=== PATIENT | female | born 1970 | race Caucasian/White ===

== ENCOUNTER → 2017-08-04 | Outpatient (CLI) | payer OTHER, SELFPAY | PROVIDERS: Visit Provider Nurse Practitioner | DX: D68.9 Coagulation defect, unspecified (principal); G44.52 New daily persistent headache (NDPH) | CPT/HCPCS: 70553; A9576 ==

== ENCOUNTER → 2017-10-27 11:44 | Outpatient (CLI) | payer OTHER, SELFPAY ==
[2017-10-31 18:53] LABS: Anti-Thrombin III Antigen 85%
[2017-10-31 18:59] LABS: Lupus Reflex Interpretation COMMENT:
== END ==
PROVIDERS: Visit Provider Internal Medicine
DX: Z79.01 Long term (current) use of anticoagulants (principal); Z51.81 Encounter for therapeutic drug level monitoring; I26.99 Other pulmonary embolism without acute cor pulmonale
CPT/HCPCS: 36415; 85301; 85613; 86147

== ENCOUNTER 2020-10-17 12:56 | Emergency (ER) | payer MEDICAID, SELFPAY ==
[2020-10-17 12:57] VITALS: BP 163/98; PULSE 100; RESP 20; TEMP 36.7; O2SAT 100; BMI 37.5
--- NOTE | 2020-10-17 13:36 | CT_ITS ---
PROCEDURE: CT ABDOMEN PELVIS W CON CLINICAL INDICATION: abdominal wall cellulitis COMPARISON: No exams were available for comparison TECHNIQUE: IV Contrast: 75ML Isovue 370 Oral Contrast None Axial images obtained with sagittal and coronal reformats. All CT scans at the facility use one or more dose reduction, viz: automated exposure control, ma/kV adjustment per patient size (including targeted exams where dose is matched to indication, i.e. head), or iterative reconstruction technique. FINDINGS: LOWER THORAX: No acute finding ABDOMEN & PELVIS: Prior cholecystectomy. The liver, spleen, adrenal glands, and pancreas have an unremarkable appearance. No renal or ureteral calculi. No hydronephrosis. There is a moderate amount of retained colonic feces. No evidence of appendicitis. There is a tampon present with air density in the vaginal region. No evidence of diverticulitis. No intestinal obstruction or free air. Bilateral ovarian follicular cysts are present at 2.8 cm on the left and 2.7 cm on the right. There is focal stranding of the subcutaneous fat in the right lower quadrant anteriorly. There is a 2 cm fluid collection in this region consistent with a subcutaneous abscess. This is associated with skin thickening. The abscess is just beneath the skin. There is some mild thickening of the subcutaneous tissues in the left lower abdominal wall as well but no abscess. Small nodular density is present in this region measuring approximately 5 mm and could be due to small lymph node. No acute bony findings. IMPRESSION: Cellulitis of the anterior abdominal wall on the right. This is inferior to the level of the umbilicus in the mid pelvic region with a 2.5 cm subcutaneous abscess Dictated by: Justin Hein MD 10/17/2020 16:45 Justin Hein MD in [place] 10/17/2020 16:45
--- NOTE | 2020-10-17 14:13 | PC.NURSE ---
pt to radiology
[2020-10-17 14:35] LABS: Basophils % 0.2 % (0.1-2.0); Eosinophils % 0.1 % (0.1-12.0); Hematocrit 39.9 % (37.0-47.0); Hemoglobin 12.9 g/dL (12.2-16.2); Lymphocytes # 1.1 K/mm3 (0.7-4.5); Lymphocytes % 9.1 % (10-50); Mean Corpuscular HGB Conc 32.2 g/dL (31.8-35.4); Mean Corpuscular Hemoglobin 29.3 pg (27.0-31.2); Mean Platelet Volume 7.3 fl (7.4-10.4); Monocytes # 0.3 K/mm3 (0.1-1.0); Monocytes % 2.1 % (1.7-9.3); Neutrophils # 10.3 K/mm3 (1.8-7.8); Neutrophils % 88.4 % (37.0-80.0); Platelet Count 469 K/mm3 (142-424); Red Blood Count 4.39 M/mm3 (4.20-5.40); Red Cell Distribution Width 13.9 % (11.5-17.5); White Blood Count 11.6 K/mm3 (4.8-10.8)
[2020-10-17 14:36] LABS: MANUAL DIFFERENTIAL MANUAL DIFFERENTIAL (MANUAL DIFF)
[2020-10-17 14:40] VITALS: BP 141/94; PULSE 96; O2SAT 99
[2020-10-17 14:42] LABS: Lymphocytes % 15 % (10-50); Monocytes % 5 % (2-9); Neutrophils % 80 % (42-76); Platelet Estimate Slight Increase; RBC Morphology Normal; Total Cells Counted 100
[2020-10-17 14:43] LABS: Alanine Aminotransferase 23 U/L (12-78); Albumin Level 4.4 g/dl (3.5-5.0); Albumin/Globulin Ratio 1.3 (1.1-1.8); Alkaline Phosphatase 102 U/L (38-126); Anion Gap 12.8 mEq/L (5-15); Aspartate Amino Transferase 28 U/L (14-36); Bilirubin,Total 0.3 mg/dl (0.2-1.3); Blood Urea Nitrogen 19 mg/dl (7-17); Calcium 9.7 mg/dl (8.4-10.2); Carbon Dioxide 26 mmol/L (22.0-30.0); Chloride 107 mmol/L (98-107); Creatinine Clearance Estimated 138 mL/min (50-200); Estimated Glomerular Filt Rate 76 ml/min (>60); GFR (African American) 92 ML/MIN (>60); Globulin 3.5 g/dL (1.3-3.2); Glucose 109 mg/dl (74-100); Potassium 3.8 mmoL/L (3.5-5.1); Sodium 142 mmol/L (136-145); Total Protein,Serum 7.9 g/dl (6.3-8.2)
[2020-10-17 14:44] LABS: Lactic Acid 1.2 mmol/L (0.7-2.1)
--- NOTE | 2020-10-17 14:46 | HMH.EDSKAF ---
ED Disposition Clinical Impression: Abscess of abdominal wall Cellulitis Qualifiers: Site of cellulitis: trunk Site of cellulitis of trunk: abdominal wall Qualified Code(s): L03.311 - Cellulitis of abdominal wall Disposition: Home, Self-Care Condition on Discharge: Good Instructions: DI for Skin Abscess Referrals: Narinder Ang MD [Primary Care Provider] - - Critical Care Critical Care Time: No Attestation: On 10/17/20, the high probability of a clinically significant, sudden or life threatening deterioration of the following system(s) required my full and direct attention, intervention and personal management. The time I documented below is in addition to time spent performing reported procedures but includes the following listed in this critical care notation. Medical Decision Making - Medical Records Medical records reviewed: Yes: I reviewed the patient's medical records. - Beny Inquiry Pt receiving controlled substance: No Vital Signs: 10/17/20 12:57 10/17/20 14:40 10/17/20 16:03 Temperature 98.1 F Temperature Source Oral Pulse Rate [Left Radial] 100 H 96 H 83 Respiratory Rate 20 Blood Pressure [Right Arm] 163/98 H 141/94 H 164/100 H Blood Pressure Mean [Right Arm] 119 109 121 Blood Pressure Source [Right Arm] Automatic Cuff Automatic Cuff Automatic Cuff Blood Pressure Position [Right Arm] Sitting Sitting Sitting 02 Sat by Pulse Oximetry 100 99 97 Oxygen Delivery Method Room Air Room Air Room Air - Lab Data Lab Results 10/17/20 13:14: WBC 11.6 H, RBC 4.39, Hgb 12.9, Hct 39.9, MCV 91.0, MCH 29.3, MCHC 32.2, RDW 13.9, Plt Count 469 H, MPV 7.3 L, Neut % (Auto) 88.4 H, Lymph % (Auto) 9.1 L, Wilkinson % (Auto) 2.1, Eos % (Auto) 0.1, Baso % (Auto) 0.2, Neut # (Auto) 10.3 H, Lymph # (Auto) 1.1, Wilkinson # (Auto) 0.3, Eos # (Auto) 0.0, Baso # (Auto) 0.0, Total Counted 100, Neutrophils % (Manual) 80 H, Lymphocytes % (Manual) 15, Monocytes % (Manual) 5, Platelet Estimate Slight increase, RBC Morphology Normal 10/17/20 13:14: Sodium 142, Potassium 3.8, Chloride 107, Carbon Dioxide 26, Anion Gap 12.8, BUN 19 H, Creatinine 0.80, Estimated Creat Clear 138, Estimated GFR 76, Est GFR ( Amer) 92, Glucose 109 H, Calcium 9.7, Total Bilirubin 0.3, AST 28, ALT 23, Alkaline Phosphatase 102, Total Protein 7.9, Albumin 4.4, Globulin 3.5 H, Albumin/Globulin Ratio 1.3 10/17/20 13:14: Lactate 1.2 Result diagrams: 10/17/20 13:14 10/17/20 13:14 Orders (Tests/Meds): ED MEDICATIONS Discontinued Medications Generic Name Dose Route Start Last Admin Trade Name Freq PRN Reason Stop Dose Admin Hydromorphone HCl 1 mg 10/17/20 14:13 10/17/20 14:14 Hydromorphone 2mg/Ml Syringe IV 10/17/20 14:14 Not Given ONCE ONE Iopamidol 75 ml 10/17/20 15:27 10/17/20 15:28 Iopamidol-370 (76%);100ml Bottle IV 10/17/20 15:28 75 ml ONCE ONE Administration Sodium Chloride 10 ml 10/17/20 15:27 10/17/20 15:28 Sodium Chloride 0.9% 10ml Syr (Rad Only) IV 10/17/20 15:28 10 ml ONCE ONE Administration - CT Data CT Scan: Abdomen, Pelvis Time Received: 17:[address] Reviewed: Yes: I have reviewed the patient's CT results, I have viewed the radiologist's interpretation Findings Narrative: IMPRESSION: Cellulitis of the anterior abdominal wall on the right. This is inferior to the level of the umbilicus in the mid pelvic region with a 2.5 cm subcutaneous abscess - Reevaluation(s) Time: 17:26 Reevaluation #1: On reevaluation, patient tolerated procedure well. I did review her antibiotics. It appears that she is on Keflex as well as clindamycin. This should be adequate for Staphylococcus coverage. I did tell the patient that she needs reevaluation and packing removal in 24 hours. She is to finish her antibiotics to completion. She was given strict return precautions. Verbalized understanding. Medical Decision Narrative: 50-year-old female presented to the emergency department with some swe
[2020-10-17 16:03] VITALS: BP 164/100; PULSE 83; O2SAT 97
--- NOTE | 2020-10-17 16:38 | PC.NURSE ---
Pt sitting in room eating at this time, asking when she was going to be discharged. Explained to pt that we had several other pt's in here and that I would let the doctor know she was ready to go. Will continue to monitor as pt allows.
[2020-10-17 18:17] VITALS: BP 139/84; PULSE 78; RESP 20; TEMP 36.7; O2SAT 98
== END 2020-10-17 18:19 | disposition home or self-care (01) ==
PROVIDERS: Emergency Provider Emergency Medicine; PCP Family Medicine
DX: L02.211 Cutaneous abscess of abdominal wall (principal); I10 Essential (primary) hypertension; E78.5 Hyperlipidemia, unspecified; K21.9 Gastro-esophageal reflux disease without esophagitis; E03.9 Hypothyroidism, unspecified; J44.9 Chronic obstructive pulmonary disease, unspecified; F41.9 Anxiety disorder, unspecified; Z79.899 Other long term (current) drug therapy; Z86.711 Personal history of pulmonary embolism
CPT/HCPCS: 10060; 74177; 80053; 83605; 85007; 85025; 99283; Q9967

== ENCOUNTER 2021-04-29 16:43 | Emergency (ER) | payer MEDICAID, SELFPAY ==
--- NOTE | 2021-04-29 17:00 | XR_ITS ---
PROCEDURE: XR WRIST RT MIN 3V CLINICAL INDICATION: pain COMPARISON: No exams were available for comparison FINDINGS: No fracture or dislocation. No lytic or blastic change. There is normal mineralization. The joint spaces are well-preserved. No significant degenerative/arthritic changes. No erosive changes evident. Other findings:None. IMPRESSION: No acute findings. Dictated by: Justin Hein MD 04/29/2021 17:31 Justin Hein MD in [place] 04/29/2021 17:31
[2021-04-29 17:30] VITALS: BP 179/106; PULSE 96; RESP 16; TEMP 36.7; O2SAT 100; BMI 36.4
--- NOTE | 2021-04-29 18:36 | HMH.EDUTC ---
[facility] [place] Clinical Impression: Right wrist sprain Qualifiers: Encounter type: initial encounter Qualified Code(s): S63.501A - Unspecified sprain of right wrist, initial encounter Disposition: Home, Self-Care Condition on Discharge: Good Instructions: Wrist Sprain, DI for Wrist Sprain, DI for Wrist Pain Additional Instructions: Rest the extremity, Elevate the extremity as tolerated while you are resting. Take ibuprofen for pain. I sent in a prescription to your pharmacy. Follow up with Dr. Johnson (orthopedics) or your orthopedic doctor of choice. Radiology is making you a disk with the x-ray on it I put in a referral but you need to call his office and schedule an appointment. Follow up with your regular doctor. GO TO THE ER FOR ANY WORSENING SYMPTOMS Prescriptions: Ibuprofen [Ibuprofen 800mg Tablet] 800 mg PO Q8HP PRN #30 tab PRN Reason: Moderate Pain Transmission Status: Received by [facility] [id number] Referrals: Kaitlin Franks [Primary Care Provider] - Ambrocio Johnson MD [Staff Physician] - Time of Disposition: 18:54 Medical Decision Making - Medical Records Medical records reviewed: No: I reviewed the patient's medical records. - Beny Inquiry Pt receiving controlled substance: No Vital Signs: 04/29/21 17:30 04/29/21 18:56 Temperature 98.1 F 98.1 F Temperature Source Oral Pulse Rate 96 H Pulse Rate [Right Brachial] 96 H Respiratory Rate 16 16 Blood Pressure 179/106 H Blood Pressure [Right Arm] 179/106 H Blood Pressure Mean [Right Arm] 130 Blood Pressure Source [Right Arm] Automatic Cuff Blood Pressure Position [Right Arm] Sitting 02 Sat by Pulse Oximetry 100 Oxygen Delivery Method Room Air [facility] [place] - General Stated complaint: rt wrist pain Time Seen by Provider: 04/29/21 18:36 Mode of Arrival: Ambulatory Source of Information: Patient Limitations: No Limitations Description of Symptoms (Recalled from Triage Doc. by RN): PATIENT C/O RIGHT WRIST PAIN AFTER INJURING IT A COUPLE WEEKS AGO HEENT Symptoms (Recalled from RN notes): No Resp Symptoms (Recalled from RN notes): No Skin Symptoms (Recalled from RN notes): No MS Symptoms (Recalled from RN notes): Yes Functional Status (Recalled from RN notes): WNL - History of Present Illness Provider Complaint: She states that she fell around 2 weeks ago and she has had right wrist pain since then. - Related Data Home Medications Medication Instructions Recorded Confirmed albuterol sulfate 90 mcg/actuation 1 puff INHALATION Q4-6H PRN 10/27/17 10/17/20 aerosol inhaler alprazolam 0.5 mg tablet 0.5 mg PO BID tab 10/27/17 10/17/20 benzonatate 100 mg capsule 100 mg PO ONCE 10/27/17 10/17/20 bisoprolol fumarate 10 mg tablet 10 mg PO ONCE 10/27/17 10/17/20 clopidogrel 75 mg tablet 75 mg PO ONCE 10/27/17 10/17/20 enoxaparin 100 mg/mL subcutaneous 100 mg SUB-Q Q12H 10/27/17 10/17/20 syringe lisinopril 40 mg tablet 40 mg PO ONCE 10/27/17 10/17/20 nitroglycerin 0.4 mg sublingual 0.4 mg SUBLINGUAL Q5-15M PRN 10/27/17 10/17/20 tablet omeprazole 40 mg capsule,delayed 40 mg PO ONCE 10/27/17 10/17/20 release ranitidine HCl 150 mg tablet 150 mg PO QHS 10/27/17 10/17/20 simvastatin 40 mg tablet 40 mg PO QAM 10/27/17 10/17/20 valsartan 160 mg tablet 160 mg PO ONCE 10/27/17 10/17/20 budesonide-formoterol HFA 160 2 inh INHALATION Q12H 12/15/17 10/17/20 mcg-4.5 mcg/actuation aerosol inhaler cyclobenzaprine 10 mg tablet 10 mg PO BID tab 12/15/17 10/17/20 dicyclomine 20 mg tablet 20 mg PO DAILY tab 12/15/17 10/17/20 doxycycline hyclate 100 mg capsule 100 mg PO BID 12/15/17 10/17/20 epinephrine 0.3 mg/0.3 mL 0.3 mg IM ONCE PRN 12/15/17 10/17/20 injection, auto-injector hydrocodone 7.5 mg-acetaminophen 1 tab PO Q6H PRN 12/15/17 10/17/20 300 mg tablet ibuprofen 800 mg tablet 800 mg PO TID 12/15/17 10/17/20 ondansetron HCl 4 mg tablet 4 mg PO QID PRN tab 12/15/17 10/17/20 sertraline 100 mg tablet 100 mg
[2021-04-29 18:56] VITALS: BP 179/106; PULSE 96; RESP 16; TEMP 36.7; O2SAT 100
== END 2021-04-29 19:08 | disposition home or self-care (01) ==
PROVIDERS: Emergency Provider Nurse Practitioner Family; PCP Nurse Practitioner Family
DX: S63.501A Unspecified sprain of right wrist, initial encounter (principal); W01.0XXA Fall on same level from slipping, tripping and stumbling without subsequent striking against object, initial encounter; Y92.019 Unspecified place in single-family (private) house as the place of occurrence of the external cause; J44.9 Chronic obstructive pulmonary disease, unspecified; K21.9 Gastro-esophageal reflux disease without esophagitis; E03.9 Hypothyroidism, unspecified; I10 Essential (primary) hypertension; Z88.0 Allergy status to penicillin
CPT/HCPCS: 73110; 99202; G0463

== ENCOUNTER → 2022-06-16 12:51 | Outpatient (CLI) | payer BC, SELFPAY ==
--- NOTE | 2022-06-16 13:01 | XR_ITS ---
FINAL REPORT CLINICAL HISTORY: lt knee pain FINDINGS: LEFT KNEE Three views of the left knee reveal no evidence of fracture or dislocation. The bony alignment is normal. The joint spaces are preserved. There is no evidence of joint effusion. No localized soft tissue abnormality is seen. IMPRESSION: No acute abnormality identified. Reviewed, Interpreted and Dictated by Los Brewer III, MD Transcribed by Court Cardenas Authenticated and [facility]
--- NOTE | 2022-06-16 13:01 | XR_ITS ---
FINAL REPORT CLINICAL HISTORY: lt hip pain FINDINGS: LEFT HIP Two views of the left hip demonstrate no acute fracture or dislocation. The joint spaces appear normal. The visualized bony structures are well aligned. No soft tissue abnormality is seen. IMPRESSION: No acute bony abnormality. Reviewed, Interpreted and Dictated by Los Brewer III, MD Transcribed by Court Cardenas Authenticated and [facility]
== END ==
PROVIDERS: PCP Family Medicine; Visit Provider Orthopaedic Surgery
DX: M25.562 Pain in left knee (principal); M25.552 Pain in left hip
CPT/HCPCS: 73502; 73562

== ENCOUNTER 2025-01-22 08:07 | Outpatient (CLI) | payer MEDICAID, SELFPAY ==
--- OUTSIDE RECORDS SUMMARY | 2015-09-09 20:00 | XMS_ITS | Continuity of Care Document ---
Author Organization [facility] Address [address] [place] [address] Phone Care Team Providers Care Head Of Physics Name Role Phone Tam Judge DDS Unavailable Unavailable Procedures Procedure Date COMPR ORAL EVAL:NEW/EST INTRAORAL:PARIAPICAL 1ST FILM N/C INTRAORAL:PERIAPICAL-EA ADD FILM N/C Aug INTRAORAL:PERIAPICAL-EA ADD FILM N/C Aug INTRAORAL:PERIAPICAL-EA ADD FILM N/C Ja INTRAORAL:PERIAPICAL-EA ADD FILM N/C Aug INTRAORAL:PERIAPICAL-EA ADD FILM N/C Aug BITEWIN FILMS PANORAMIC FILM Health History Update Advance Directives Directive Yes / No Effective Date File Name No Information Encounters Encounter Description Practice Location Reason(s) For Visit Diagnoses Date Provider Providers Copied on Encounter [facility], [address], [place], [place], [id number], tel:[phone] [address] [place] [address] No Information [address] Alfie Turc[address] [place], [address], [place]. [phone] Family History Family Member Type Diagnosis Age At Onset No Information Payers Payer name Insurance type Covered democrat ID Authoreduardo duron(s) [facility] [facility] [id number] [facility] [employer] [id number] Social History Type Description Quantity Date Captured Comments Sex Female Smoking Status No Information Chief Complaint And Reason For Visit No Information Reason For Referral Reason For Referral No Information History Of Present Illness Encounter Date Complaint History Of Prese nt Illness No Information Functional Status Date Functional Assessmen t No Information Instructions Date Instruction Additional Infor mation No Information Assessments Type Assessment Date No Information Patient Care Teams Name Effective Dates (start - stop) Status Members No Information
[2025-01-22 18:31] LABS: Basophils # 0.1 K/mm3 (0-0.2); Basophils % 1.2 % (0.1-2.0); Eosinophils # 0.3 Kmm3 (0.0-0.4); Eosinophils % 4.4 % (0.1-12.0); Hematocrit 42.8 % (37.0-47.0); Hemoglobin 13.1 g/dL (12.2-16.2); Immature Granulocytes # 0.02 10^3uL; Immature Granulocytes % 0.3 %; Lymphocytes # 2.2 K/mm3 (0.7-4.5); Lymphocytes % 29.6 % (10-50); Mean Corpuscular HGB Conc 30.6 g/dL (31.8-35.4); Mean Corpuscular Hemoglobin 28.8 pg (27.0-31.2); Mean Corpuscular Volume 94.1 fl (81-99); Mean Platelet Volume 9.9 fl (7.4-10.4); Monocytes # 0.7 K/mm3 (0.1-1.0); Monocytes % 8.8 % (1.7-9.3); Neutrophils # 4.2 K/mm3 (1.8-7.8); Neutrophils % 55.7 % (37.0-80.0); Nucleated Red Blood Cells # 0 10^3/uL; Nucleated Red Blood Cells % 0 %; Platelet Count 342 K/mm3 (142-424); Red Blood Count 4.55 M/mm3 (4.20-5.40); Red Cell Distribution Width-SD 44.3 fL; White Blood Count 7.6 K/mm3 (4.8-10.8)
[2025-01-22 19:50] LABS: HIV Combo NEGATIVE (Negative)
[2025-01-22 20:06] LABS: Albumin Level 4.5 g/dl (3.5-5.0); Chloride 108 mmol/L (98-107); Potassium 4.6 mmoL/L (3.5-5.1); Sodium 142 mmol/L (136-145)
[2025-01-22 20:09] LABS: Alanine Aminotransferase 34 U/L (12-78); Albumin/Globulin Ratio 1.5 (1.1-1.8); Alkaline Phosphatase 100 U/L (38-126); Anion Gap 12.6 mEq/L (5-15); Aspartate Amino Transferase 34 U/L (14-36); Bilirubin,Total 0.4 mg/dl (0.2-1.3); Blood Urea Nitrogen 19 mg/dl (7-17); Carbon Dioxide 26 mmol/L (22.0-30.0); Cholesterol 253 mg/dl (140-200); Estimated Glomerular Filt Rate 75 ml/min (>60); GFR (African American) 90 ML/MIN (>60); Globulin 3.1 g/dL (1.3-3.2); Total Protein,Serum 7.6 g/dl (6.3-8.2); Triglycerides 279 mg/dl (30-150); VLDL Cholesterol 56 mg/dL (0-40)
[2025-01-22 20:10] LABS: Calcium 9.6 mg/dl (8.4-10.2); Chol/HDL Ratio 4.8 (1-3.5); Glucose 89 mg/dl (74-100); HDL Cholesterol 53 mg/dl (40-60)
[2025-01-22 20:21] LABS: Direct LDL Cholesterol 129.61 mg/dL (100-129)
[2025-01-22 20:26] LABS: T4 (Thyroxine) 5.8 ug/dl (5.53-11.0)
[2025-01-22 20:39] LABS: Thyroid Stimulating Hormone 7.43 uIU/mL (0.465-4.68)
[2025-01-22 21:17] LABS: Hepatitis C Ab Qual. W/ RFX NEGATIVE (Negative)
--- OUTSIDE RECORDS SUMMARY | 2025-01-24 08:12 | XMS_ITS | CCD ---
Author Name Interface, [id number] lity Address [address] [place], [place] [id number] Organization [facility] Address [address] [place], [place] [address] Care Team Providers Care Testing Shaking Shipping Name Role Phone Interface, [id number] Unavailable Unavail able Reason for Visit Social History
--- OUTSIDE RECORDS SUMMARY | 2025-01-24 08:12 | XMS_ITS | Data Portability ---
Author Organization [facility] [place] [facility] [place] [facility] Address [address] [place] [address] Care Team Providers Care Bobbin Inspector Name Role Phone PRIMARY PLUS - REBECA Primary Care Provider [phone] Assessment No assessment recorded. Plan of Treatment Reminders Order Date Submit Date Provider Last Modified By Organization Details Last Modified Time Details Appointments None recorded. Lab thyroid panel, serum 2023 024 [email or web address] [facility] (Registration ), [address] [place] [address] [place], [address], 4 07:28:37 Referral None recorded. Procedures None recorded. Surgeries None recorded. Imaging XR, foot 2024 025 ok [facility], [address] [place] [address] [place], [address], 5 12:58:04 XR, shoulder 2024 025 ok [facility], [address] [place] [address] [place], [address], 5 12:58:04 XR, knee 2023 024 kelsey [facility], [address] [place] [address] [place], [address], 4 11:26:17 XR, hip, unilateral 2023 024 kelsey [facility], [address] [place] [address] [place], [address], 4 11:26:17 Medication Orders Medrol (Nando) 4 mg tablets in a dose pack 2023 024 MACKENZIE [facility], [address] [facility] [address] [place], [id number], 4 16:17:40 Kenalog 10 mg/mL suspension for injection 2023 024 [email or web address] Not available 4 15:27:34 bupivacaine (PF) 0.5 % (5 mg/mL) injection solution 2023 024 [email or web address] Not available 4 15:27:34 Kenalog 10 mg/mL suspension for injection 2021 [email or web address] Not available 4 10:53:43 Xylocaine 20 mg/mL (2 %) injection solution 2021 022 [email or web address] Not available 4 10:55:42 Patient TargetsNo targets recorded. Patient InstructionsNo instructions recorded. Reason for Referral None Reported. Results Created Date Observation Date Name Description Value Unit Range Abnormal Flag Note LastModifiedBy Organization Detail LastModifiedTime 11/01/19 24 01/26/2014 US, thyro id No observ ation record ed. [email or web address] Not Available 10/31 14:23:40 11/01/19 24 12/10/2015 US, thyro id No observ ation record ed. [email or web address] Not Available 10/31 14:25:08 07/21/20 24 XR, hip, unila teral No observ ation record ed. MACKENZIE Melendez [address] [place], [address], 07/21/2024 10:50:14 07/21/20 24 XR, knee No observ ation record ed. MACKENZIE Melendez [address] [place], [address], 07/21/2024 10:50:03 09/08/19 25 XR, foot No observ ation record ed. MACKENZIE Melendez [address] [place], [address], 09/08/2024 12:03:34 09/08/19 25 XR, shoul jennifer No observ ation record ed. MACKENZIE Mv [address] [place], [address], 09/08/2024 12:03:25 Result Notes None recorded. Procedures Surgical History Date Name Laterality Status Provider Name and Address Organization Details Recorded Time excision of right lobe of thyroid gland completed Frank Rivera [facility] & [place] 12/06/2023 10:37:50 Imaging Results None recorded. Procedure Notes None recorded. Medical Equipment None Reported. Allergies Allergen ID Allergen Name Allergen Category Reaction Reaction Severity Criticality Documentation Date Start Date Code Code System Note Provider Name and Address Organization Details Recorded Time 957361 Product containin g penicilli n (product) medicatio n dyspnea Not available high 12/06/2023 13751 8001 SNOMED Frank Rivera [facility] & [place] 10:51:41 Medications Name Sig Start Date Stop Date Status Note LastModified by Organization Details LastModified Time cyclobenzap rine 10 mg tablet active Not Available Not Available Not Available atorvastati n 40 mg tablet active Not Available Not Available Not Available levothyroxi ne 175 mcg tablet TAKE ONE (1) TABLET EVERY DAY BY ORAL ROUTE FOR 30 DAYS. active Not Available Not Available No t Available prednisone 10 mg tablet 12/05 completed Not Available Not Available Not Available atorvastati n 20 mg tablet active Not Available Not Available Not Available venlafaxine 75 mg tablet active Not Available Not Available Not Available clindamycin HCl 300 mg capsule 12/05 completed Not Available Not Available Not Available cetirizine 10 mg tablet active Not Available Not Available Not Available azithromyci n 250 mg tablet 12/05 completed Not Available Not Available Not Available ibuprofen 800 mg tablet TAKE ONE (1) TABLET THREE (3) TIMES A DAY BY ORAL ROUTE FOR 90 DAYS. active Not Available Not Available No t Available metoprolol succinate ER 50 mg tablet,exte nded release 24 hr TAKE ONE (1) TABLET EVERY DAY BY ORAL ROUTE FOR 30 DAYS. active Not Available Not Available No t Available clopidogrel 75 mg tablet active Not Available Not Available Not Available omeprazole 40 mg capsule,del ayed release TAKE ONE (1) CAPSULE EVERY DAY BY ORAL ROUTE DIRECTED FOR 30 DAYS. active Not Available Not Available No t Available aspirin 81 mg tablet,valerie yed release TAKE ONE (1) TABLET EVERY DAY BY ORAL ROUTE. active Not Available Not Available No t Available bisoprolol fumarate 10 mg tablet active Not Available Not Available No t Available alprazolam 0.5 mg tablet active Not Available Not Available Not Available dicyclomine 20 mg tablet active Not Available Not Available Not Available Kenalog 10 mg/mL suspension for injection Take 20 mg by injection route. 2023 active Not Available Not Available Not Avai lable amlodipine 10 mg tablet active Not Available Not Available Not Available benzonatate 100 mg capsule active Not Available Not Available Not Available hydrocodone 7.5 mg-acetamin ophen 325 mg tablet active Not Available Not Available No t Available valsartan 320 mg tablet TAKE 1 TABLET BY MOUTH ONCE DAILY active Not Available Not Available No t Available levothyroxi ne 150 mcg tablet 12/05 completed Not Available Not Available Not Available nitroglycer in 0.[address] ONE TABLET UNDER THE TONGUE EVERY FIVE (5) MINUTES UP TO THREE (3) TIMES FOR CHESTPAIN NEEDED active Not Available Not Available No t Available Xylocaine 20 mg/mL (2 %) injection solution Take 1 mg by injection route. 12/05 completed Not Available Not Available Not Available gabapentin 300 mg capsule active Not Available Not Available Not Available levothyroxi ne 200 mcg tablet TAKE ONE (1) TABLET EVERY DAY BY ORAL ROUTE FOR 90 DAYS. active Not Available Not Available No t Available furosemide 20 mg tablet TAKE ONE (1) TABLET EVERY DAY BY ORAL ROUTE FOR 30 DAYS. active Not Available Not Available No t Available gabapentin 100 mg capsule active Not Available Not Available Not Available metoprolol succinate ER 25 mg tablet,exte nded release 24 hr TAKE 1 TABLET BY MOUTH EVERY DAY active Not Available Not Available No t Available ergocalcife rol (vitamin D2) 1,250 mcg (50,000 unit) capsule TAKE ONE (1) CAPSULE EVERY WEEK BY ORAL ROUTE FOR 90 DAYS. active Not Available Not Available No t Available benazepril 40 mg tablet active Not Available Not Available Not Available methylpredn isolone 4 mg tablets in a dose pack Take 1 dose pk by oral route. active Not Available Not Available No t Available lisinopril 40 mg tablet active Not Available Not Available Not Available cefdinir 300 mg capsule TAKE 1 CAPSULE BY MOUTH TWICE DAILY FOR 10 DAYS 12/05 completed Not Available Not Available Not Available fluticasone propionate 50 mcg/actuati on nasal spray,suspe nsion active Not Available Not Available Not Available Ventolin HFA 90 mcg/actuati on aerosol inhaler INHALE TWO PUFFS BY MOUTH EVERY SIX (6) TO 8 HOURS active Not Available Not Available No t Available enoxaparin 100 mg/mL subcutaneou s syringe INJECT 100 MG TWICE A DAY BY SUBCUTANE OUS ROUTE. active Not Available Not Available No t Available bupivacaine (PF) 0.5 % (5 mg/mL) injection solution Take 10 mg by injection route. 2023 active Not Available Not Available Not Avai lable duloxetine 30 mg capsule,del ayed release TAKE ONE (1) CAPSULE EVERY DAY BY ORAL ROUTE FOR 30 DAYS. active Not Available Not Available No t Available chlorhexidi ne gluconate 0.12 % mouthwash RINSE 15 ML IN MOUTH TWICE DAILY DIRECTED 12/05 completed Not Available Not Available Not Available Symbicort 160 mcg-4.5 mcg/actuati on HFA aerosol inhaler INHALE TWO (2) PUFFS TWICE A DAY BY INHALATIO N ROUTE active Not Available Not Available No t Available Vitals Date Recorded Body height Body mass index (BMI) Body weight Provider Name and Address Organization Details Last Updated DateTime 12/06/2023 165.1 cm 40.9 kg/m2 718484.72 g Frank Rivera [facility] & [place] 12/06/2023 10:51:11 Date Recorded Body height Provider Name an d Address Organization Details Last Updated DateTime 01/04/2024 165.1 cm Alma Benitez [facility] [place] 01/04/2024 15:05:35 Date Recorded Body temperature Heart rate Respiratory rate Systolic blood pressure Diastolic blood pressure Provider Name and Address Organization Details Last Updated DateTime 2 98 [degF] 78 /min 18 /min 170 mm[Hg] 100 mm[Hg] Regine Bartholomew [place] [facility] [place] [facility] [place] 2 15:28:34 Social History None recorded. Functional Status Question Answer Note LastModified by Organizat ion Details LastModified Time Do you use any illicit or recreational drugs? No [email or web address] Information not available 12/06/2023 What is your level of alcohol consumption? Occasional [email or web address] Information not available 12/06/2023 Mental Status None recorded. Family History Relationship Description Onset Age of this Age Resolved Age Notes LastModified by Organization Details LastModified Time Father No current problems or disability [email or web address] Not available 09/08 11:56:51 Father Disorder of endocrine system pt. added direct ly (01/03) [email or web address] Not available 01/04/2024 14:52:33 Father Hypertensive disorder pt. added direct ly (01/03) [email or web address] Not available 01/04/2024 14:52:33 Mother No current problems or disability [email or web address] Not available 09/08 11:56:51 Mother Anemia pt. added direct ly (01/03) [email or web address] Not available 01/04/2024 14:53:45 Mother Heart disease pt. added direct ly (07/17) [email or web address] Not available 07/17/2024 16:29:39 Medical History No medical history recorded. Gynecological HistoryNo gynecological history recorded. 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 This has been almost 10 years ago without significan t improvemen t. Thyroid fu nction tests abnormal 601773732 R94.6 I advised that we should repeat her thyroid labs in [facility] 1 month and see if her TSH has normalized . [id number] MILES BENTLEY NP [facility] [address] [place] [address] 9 01/04/2024 14:38:01 01/04/2024 15:18:02 Bilateral tendonitis of wrists 2804205888 4958046 M67.254 [id number] Dom Fountain MD [place] [address] 07/21/2024 10:05:43 07/21/2024 11:05:17 Pain of right knee joint 8642464934 52478 M25.561 Pain of ri ght hip joint 1981316568 05593 M25.849 [id number] MARIETTA LINDER DO [facility] [place] [address] 09/08/2024 11:37:32 09/08/2024 12:08:09 Pain in left foot 6542244139 47536 M79.672 Pain of ri ght shoulder joint 5643195298 3368737 M25.511 Health Concerns Section Related Observation LastModified by Organization Detai ls LastModified Time None Recorded Concern Status LastModified by Organization Details LastModified Time None Recorded Advance Directives Directive None Recorded Payers Insurance Date Sequence Insurance Name Policy Number Policy Vazquez Covered Member ID Vazquez Member ID Guarantor Name 09/08/2024 1 [employer] (MEDICAID REPLACEMENT - HMO) Suzette Cordon [id number] Suzette Cordon 01/04/2024 1 [place] ([place]) [id number] Suzette Cordon [id number] Suzette Cordon 07/21/2024 1 [place] - [place]MO) Suzette Cordon [id number] Suzette Cordon 01/04/2024 1 [employer] ([place]) Suzette Cordon [id number] Suzette Cordon 01/18/2020 1 [employer] - [place] (MEDICAID REPLACEMENT - HMO) [facility] Suzette A Cordon [id number] Suzette Cordon 07/15/2022 1 [employer] ([place]AC[place] - HMO) Suzette Cordon [id number] Suzette Cordon 09/08/2024 1 [place] Suzette Cordon [id number] Suzette Cordon 08/02/2024 1 MEDICAID-[facility] HEALTH CHOICES - FFS/TRADITION AL Suzette A Cordon [id number] Suzette Cordon Notes Date Note Type Note Provider Name and Address Organization Details Recorded Time 07/15/2022 text/html Pt is here for a right wrist injection Extensor Carpi Ulnaris Tendinitis. She reports the inj was only effective for about one month.E2SF MILES BENTLEY, SOLAR DEVELOPMENT ENGINEER [address] [facility],[address], [place], [address], [facility] & [place] 07/15/2022 15:44:01 12/06/2023 text/html 53yo female in the office to discuss recent abnormal thyroid labs. States she recently had her labs drawn and was told they were high States she was recently admitted for fluid retention, about 25 pounds. She was increased on her Synthroid to 175 mcg. She did pull up her recent labs on MyChart in her TSH was 28 however her T4 was within normal limits. She does report that she takes her thyroid medication every single day and does not miss. Shandra Lorenzo MD [address], [place], [address], [facility] [place] 12/06/2023 14:01:24 01/04/2024 text/html Patient presents in office for right wrist injection. Last injection 07/15/22. States effective x3-4 months. [id number] Dom Fountain MD [address] [place] [address],[address], [place], [address], [facility] [place] 01/05/2024 07:57:28 07/21/2024 text/html Pt presents toda y with bilateral arm pain and right knee and right hip pain.DOO: knee pain : over 2 years, Hip pain: 2 years, bilateral arm pain: a couple of months ago. Pt was seen here for bilateral wrist injection on 01.04.24. Pt states she fractured her right wrist, fractured her right knee, and right shoulder 2 years ago and saw [facility] for those injuries which she states she quit seeing them after 1.5 months because they weren't doing anything . Pt takes tylenol and ibuprofen for pain. We will get x-rays today.E3AT MILES BENTLEY NP [address] [place] [address],[address], [place], [address], [facility] - [facility] & [place] 07/21/2024 11:23:56 09/08/2024 text/html Fell on ice 09.06.24. left foot pain and right shoulder pain. MARIETTA LINDER DO [address] [facility],[address], [place], [address], [facility] - [facility] & [place] 09/10/2024 13:00:53 OBGyn Episode No OBEpisode recorded.
--- OUTSIDE RECORDS SUMMARY | 2025-01-24 08:12 | XMS_ITS | Clinical Summary ---
Author Organization [facility] Address [address] [place] [address] Care Team Providers Care Pharmacist Helper Name Role Phone Mirza Elliott PA-C Unavailable Kaleigh Ge APRN Primary Care Provider [phone] Gloria More MA Unavailable Unavailable Wanda Leyva RN Unavailable Unavailable Pratima Richey NP Unavailable Daisy Michelle RRT Unavailable Unavailable Allergies No known active allergies Medications ALPRAZolam (XANAX) 0.5 mg tablet Take 0.5 mg by mouth Twice a day. Active clopidogrel (PLAVIX) 75 mg tablet Take 75 mg by mouth Daily. Active levothyroxine (SYNTHROID) 175 mcg tablet Take 225 mcg by mouth Daily. Active valsartan (DIOVAN) 160 mg tablet Take 160 mg by mouth Daily. Active lisinopril (PRINIVIL, ZESTRIL) 40 mg tablet Take 40 mg by mouth Daily. Active cyclobenzaprine (FLEXERIL) 10 mg tablet Take 10 mg by mouth Twice a day. Active sertraline (ZOLOFT) 100 mg tablet Take 100 mg by mouth Daily. Active Ranitidine HCl 150 mg Cap Take 150 mg by mouth Twice a day. Active nitroglycerin (NITROSTAT) 0.4 mg SL tablet Take 0.4 mg sublingually Every 5 minutes as needed for Chest pain. Active rivaroxaban (XARELTO) 15 mg tablet Take 15 mg by mouth Twice a day. Active ondansetron (ZOFRAN-ODT) 4 mg disintegrating tablet Take 4 mg by mouth Daily. Active albuterol (VENTOLIN HFA) 90 mcg/Actuation inhaler Take 1 Puff by inhalation Every 4 hours. Active tiotropium (SPIRIVA) 18 mcg inhalation cap Take 18 mcg by inhalation Daily. Active ibuprofen (MOTRIN) 800 mg tablet Take 800 mg by mouth Every 8 hours as needed for Pain. Active enoxaparin (LOVENOX) 100 mg/mL injection Administer subcutaneously Twice a day. Active Gabapentin (NEURONTIN) 600 mg tablet Take 600 mg by mouth Three times a day. Active Active Problems No known active problems Encounters Date Type Department Care Team Description 12/04/2024 Orders Only [facility] [address] [place] [address] Kaleigh Franks APRN from Last 3 Months Family History Medical History Relation Name Comments COPD Father Cancer Father Lung Diabetes Father Heart Disease Father Other Father multiple DVTs l ed to amputation Heart Disease Maternal Grandfather COPD Maternal Grandmother Cancer Mother unknown origin Cancer Paternal Grandmother brain Diabetes Paternal Grandmother Diabetes Sister 1 Elevated Lipids Sister 1 Lung Disease Sister 1 Cancer Sister 2 Pancreatic Relation Name Status Comments Brother 1 Alive Brother 2 Alive Father Maternal Grandfather Maternal Grandmother Mother Paternal Grandfather Paternal Grandmother Sister 1 Alive Sister 2 Alive Social History Tobacco Use Types Packs/Day Years Used Date Smoking Tobacco: Never Smokeless Tobacco: Never Comments No Sex and Gender Information Value Date Recorded Sex Assigned at Not on file Legal Sex Female 3:04 PM EDT Gender Identity Not on file Sexual Orientation Not on file Last Filed Vital Signs Vital Sign Reading Time Taken Comments Blood Pressure 145/97 12/26/2018 10:06 AM EDT Pulse 88 12/26/2018 10:06 AM EDT Temperature 36.6 C (97.9 F) 05/19/2018 10:14 AM EDT Respiratory Rate 16 12/26/2018 10:06 AM EDT Oxygen Saturation 99% 12/26/2018 10:06 AM EDT on 2lpm Inhaled Oxygen Concentration - - Weight 104.3 kg (230 lb) 12/26/2018 10:06 AM EDT Height 165.1 cm (5' 5 ) 12/26/2018 10:06 AM EDT Body Mass Index 38.27 12/26/2018 10:06 AM EDT Plan of Treatment Health Maintenance Due Date Last Done Comments COLOGUARD 1971 COLONOSCOPY 1971 Colorectal Screening Combination 1971 FIT 1971 HEP C SCREENING 1971 PAP SMEAR EVERY 3 YR (Cervic al Cancer Screen) 1971 SIGMOIDOSCOPY 1971 ANNUAL WELLNESS EXAM 1974 DTAP/TDAP/TD VACCINE (1 - Tdap) 1990 Shingles Vaccine (Shingrix) (1 of 2) 2021 INFLUENZA VACCINE (Season Ended) 2025 HEP A VACCINE Aged Out No longer elig ible based on patient's age to complete this topic HIB VACCINE Aged Out No longer eligi ble based on patient's age to complete this topic ROTOVIRUS VACCINE Aged Out No longer eligible based on patient's age to complete this topic Care Teams Pharmacist Helper Relationship Specialty Start Date End Date Kaleigh Franks APRN [address] [place] [address] PCP - General FAMILY NURSE PRACTITIONER 03/16/18 Mirza Elliott PA-C Pulmonary Medicine 03/14/18 Gloria More MA 06/07/18 Wanda Leyva, RN 08/23/18 Pratima Richey NP [address] [facility] [place] [address] Pulmonary Disease 12/26/18 Daisy Michelle, HEAT TREATMENT TECHNICIAN Respiratory Therapist Respiratory Therapy 12/28/18
--- OUTSIDE RECORDS SUMMARY | 2025-01-24 08:12 | XMS_ITS | Encounter Summary ---
Author Organization [facility] Address [address] [place] [address] Care Team Providers Care Industrial Waste Treatment Technician Name Role Phone Mirza Elliott PA-C Unavailable Kaleigh Ge APRN Primary Care Provider [phone] Gloria More MA Unavailable Unavailable Wanda Leyva RN Unavailable Unavailable Pratima Richey NP Unavailable Daisy Michelle CARPET LAYER Unavailable Unavailable Reason for Visit * Reason Onset Date Comments Schedule Procedure 12/28/2018 Encounter Details Date Type Department Care Team (Late st Contact Info) Description 12/28/[address] [address] Daisy Michelle, [place] Schedule Procedure Social History Tobacco Use Types Packs/Day Years Used Date Smoking Tobacco: Never Smokeless Tobacco: Never Comments No Sex and Gender Information Value Date Recorded Sex Assigned at Not on file Legal Sex Female 3:04 PM EDT Gender Identity Not on file Sexual Orientation Not on file documented as of this encounter Miscellaneous Notes * Telephone Encounter - Daisy Michelle RRT - 02/08/2019 1:40 PM EDT Had ECHO done the other day will bring to next appointment. * Telephone Encounter - Pratima Richey NP - 12/29/2018 4:11 PM EDT If she can do echocardiogram at [facility], it would be best as there is a PA process that we cannot complete when it is at an outside facility. She can do this at [facility] if it is easier for her and closer. Thanks! documented in this encounter Plan of Treatment Not on file documented as of this encounter Visit Diagnoses Not on filedocumented in this encounter Care Teams Industrial Waste Treatment Technician Relationship Specialty Start Date End Date Kaleigh Franks APRN [address] [place] [phone] PCP - General FAMILY NURSE PRACTITIONER 03/16/18 Mirza Elliott PA-C Pulmonary Medicine 03/14/18 Gloria More MA 06/07/18 Wanda Leyva, RN 08/23/18 Pratima Richey NP [address] [facility] [employer] [place] [id number] Pulmonary Disease 12/26/18 Daisy Michelle, CARPET LAYER Respiratory Therapist Respiratory Therapy 12/28/18 documented as of this encounter
--- OUTSIDE RECORDS SUMMARY | 2025-01-24 08:12 | XMS_ITS | Clinical Summary ---
Author Organization [facility] Address [facility] [place] [address] Care Team Providers Care Med Peds Name Role Phone PcpTita Primary Care Provider [phone] Source Comments This information has been disclosed to you from confidential records protectedfrom disclosure by state law. You shall make no further disclosure of thisinformation without the specific, written, and informed release of theindividual to whom it pertains, or as otherwise permitted by law. A generalauthorization for the release of medical or other information is not sufficientfor the purposes of therelease of HIV test results or diagnoses. [id number] Social History Tobacco Use Types Packs/Day Years Used Date Smoking Tobacco: Never Assessed Comments Unknown Sex and Gender Information Value Date Recorded Sex Assigned at Not on file Legal Sex Female 3:16 PM EST Gender Identity Not on file Sexual Orientation Not on file Plan of Treatment Not on file Care Teams Med Peds Relationship Specialty Start Date End Date Tita Hu No Address PCP - General Pediatrics 09/24/16
--- OUTSIDE RECORDS SUMMARY | 2025-01-24 08:12 | XMS_ITS | Encounter Summary ---
Author Organization [facility] Address [address] [place] [address] Care Team Providers Care Director Of Product Development Name Role Phone Mirza Elliott PA-C Unavailable Kaleigh Ge APRN Primary Care Provider [phone] Gloria More MA Unavailable Unavailable Wanda Leyva RN Unavailable Unavailable Pratima Richey RN MEDICAL SURGICAL Unavailable Daisy Michelle SKIDDER LEVER OPERATOR Unavailable Unavailable Encounter Details Date Type Department Care Team (Late st Contact Info) Description 05/04/2020 Orders Only [facility] [address] [place] [address] Amada Mittal MD [address] [place], [place] [id number] Social History Tobacco Use Types Packs/Day Years Used Date Smoking Tobacco: Never Smokeless Tobacco: Never Comments No Sex and Gender Information Value Date Recorded Sex Assigned at Not on file Legal Sex Female 3:04 PM EDT Gender Identity Not on file Sexual Orientation Not on file documented as of this encounter Plan of Treatment Not on file documented as of this encounter Visit Diagnoses Not on filedocumented in this encounter Care Teams Director Of Product Development Relationship Specialty Start Date End Date Kaleigh Franks APRN [address] [place] [phone] PCP - General FAMILY NURSE PRACTITIONER 03/16/18 Mirza Elliott PA-C Pulmonary Medicine 03/14/18 Gloria More MA 06/07/18 Wanda Leyva, RN 08/23/18 Pratima Richey NP [address] [facility] [place] [address] Pulmonary Disease 12/26/18 Daisy Michelle, SKIDDER LEVER OPERATOR Respiratory Therapist Respiratory Therapy 12/28/18 documented as of this encounter
--- OUTSIDE RECORDS SUMMARY | 2025-01-24 08:12 | XMS_ITS | CCD ---
Author Name Interface, [id number] lity Address [address] [place], [place] [id number] Organization [facility] Address [address] [place], [place] [id number] Care Team Providers Care Labeling Specialist Name Role Phone Interface, [id number] Unavailable Unavail able Reason for Visit Social History Date Name Value Sex Female
--- OUTSIDE RECORDS SUMMARY | 2025-01-24 08:12 | XMS_ITS | Encounter Summary ---
Author Organization [facility] Address [address] [place] [address] Care Team Providers Care Employment Educational Coord Name Role Phone Mirza Elliott PA-C Unavailable Kaleigh Ge APRN Primary Care Provider [phone] Gloria More MA Unavailable Unavailable Wanda Leyva RN Unavailable Unavailable Pratima Richey BATCH STILL OPERATOR Unavailable Daisy Michelle RRT Unavailable Unavailable Reason for Visit * Reason Onset Date Comments Other 08/29/2018 Encounter Details Date Type Department Care Team (Late st Contact Info) Description 08/29/[address] [phone] Gloria More MA Other Social History Tobacco Use Types Packs/Day Years Used Date Smoking Tobacco: Never Smokeless Tobacco: Never Comments No Sex and Gender Information Value Date Recorded Sex Assigned at Not on file Legal Sex Female 3:04 PM EDT Gender Identity Not on file Sexual Orientation Not on file documented as of this encounter Miscellaneous Notes * Telephone Encounter - Gloria More MA - 08/29/2018 9:38 AM EST Mirza, Patient would like more antibiotics due to still being congested. She also wants a letter stating that she can not work due to 24 hour O2. Explained to her documented in this encounter Plan of Treatment Not on file documented as of this encounter Visit Diagnoses Not on filedocumented in this encounter Care Teams Employment Educational Coord Relationship Specialty Start Date End Date Kaleigh Franks APRN [address] [place] [phone] PCP - General FAMILY NURSE PRACTITIONER 03/16/18 Mirza Elliott PA-C Pulmonary Medicine 03/14/18 Gloria More MA 06/07/18 Wanda Leyva, RN 08/23/18 Pratima Richey NP [address] [facility] [place] [address] Pulmonary Disease 12/26/18 Daisy Michelle, ELEMENTARY SCIENCE TEACHER Respiratory Therapist Respiratory Therapy 12/28/18 documented as of this encounter
--- OUTSIDE RECORDS SUMMARY | 2025-01-24 08:12 | XMS_ITS | Encounter Summary ---
Author Organization [facility] Address [address] [place] [address] Care Team Providers Care Butcher Fish Name Role Phone Mirza Elliott PA-C Unavailable UnaKaleigh Sheets APRN Primary Care Provider [phone] Gloria More MA Unavailable Unavailable Wanda Leyva RN Unavailable Unavailable Pratima Richey NP Unavailable Daisy Michelle RRT Unavailable Unavailable Encounter Details Date Type Department Care Team (Late st Contact Info) Description 12/04/2024 Orders Only [facility] [address] [place] [address] [place] [address] Kaleigh Franks APRN [address] [place] [phone] Social History Tobacco Use Types Packs/Day Years [...] on filedocumented in this encounter Care Teams Butcher Fish Relationship Specialty Start Date End Date Kaleigh Franks APRN [address] [place] [phone] PCP - General FAMILY NURSE PRACTITIONER 03/16/18 Mirza Elliott PA-C Pulmonary Medicine 03/14/18 Gloria More MA 06/07/18 Wanda Leyva, RN 08/23/18 Pratima Ricehy NP [address] [facility] [place] [address] Pulmonary Disease 12/26/18 Daisy Michelle, BLENDING TANK TENDER Respiratory Therapist Respiratory Therapy 12/28/18 documented as of this encounter
--- OUTSIDE RECORDS SUMMARY | 2025-01-24 08:14 | XMS_ITS | Data Portability ---
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 -The potential side effects of medications were discussed. -Counseling was done on care goals and ways to prevent future hospitalizations . -Further treatment per orders listed below. Not available 10/18/2023 09:58:26 10/19/2024 10/19/2024 Service was provided using telemedicine. The patient verbally consents to virtual services and the consent is documented in the medical record prior to using the service. Patient is located at their place of residence in [facility]. Provider is located at medical clinic in [facility]. Names and roles of all persons participating in telemedicine services include:Suzette Cordon and Yolanda David APRN Not available 10/19/2024 18:13:10 Plan of Treatment Reminders Order Date Submit Date Provider Last Modified By Organization Details Last Modified Time Details Appointments None recorded. Lab CMP, serum or plasma 2023 024 [facility], [address], [place], [address], 07:37:59 CBC w/ auto diff 2023 024 [facility], [address], [place], [address], 4 07:37:58 vitamin B12 + folate, serum or blood 2023 024 [facility], [address], [address], [place], [address], 4 07:38:00 TSH + free T4, serum 2023 024 [facility], [address], [address], [place], [address], 4 07:37:57 vitamin D, 25-hydroxy, total, serum 2023 024 [facility], [address], [address], [place], [address], 4 07:38:01 magnesium, serum or plasma 2023 024 [facility], [address], [address], [place], [address], 4 07:38:02 CMP, serum or plasma 2023 024 [facility], [address], [address], [place], [address], 4 07:37:18 Referral bariatric surgery referral 2024 025 [facility], [address] [facility], [place], [address], 5 15:13:29 nephrologis t referral 2023 024 Rocael Martin, [address], [place], [address], 4 15:34:00 Procedures None recorded. Surgeries None recorded. Imaging NM, bone scan, whole body 2024 025 [facility] ([facility]), [address], [place], [address], 5 16:21:57 DEXA, axial skeleton 2024 025 [facility], [address] [place] [address], [place], [address], 5 15:50:00 Medication Orders doxycycline hyclate 100 mg capsule 2024 025 [facility], [address] [place] [address], [address], 5 13:32:46 Medrol (Nando) 4 mg tablets in a dose pack 2024 025 [facility], [address] [place] [address], [address], 5 13:32:46 ergocalcife rol (vitamin D2) 1,250 mcg (50,000 unit) capsule 2023 024 [facility], [address] [place] [address], [address], 4 18:13:47 duloxetine 30 mg capsule,del ayed release 2023 024 [facility], [address] [place] [address], [address], 4 18:13:47 omeprazole 40 mg capsule,del ayed release 2023 024 [facility], [address] [place] [address], [place], [address], 4 17:30:47 Ventolin HFA 90 mcg/actuati on aerosol inhaler [address], [address], 4 17:30:56 Symbicort 160 mcg-4.5 mcg/actuati on HFA aerosol inhaler [address] [facility], [address] [place] [address], [place], [address], 4 19:49:28 enoxaparin 100 mg/mL subcutaneou s syringe 2023 [facility], [address] [place] [address], [address], 4 17:30:55 nitroglycer in 0.4 mg sublingual tablet 2023 [facility], [address] [place] [address], [address], 4 17:31:43 furosemide 20 mg tablet 2023 [facility], [address] [place] [address], [address], 4 17:30:51 metoprolol succinate ER 50 mg tablet,exte nded release 24 hr 2023 [facility], [address] [place] [address], [address], 4 17:30:49 Adult Low Dose Aspirin 81 mg tablet,valerie yed release 2023 [facility], [address] [place] [address], [address], 4 17:30:53 levothyroxi ne 175 mcg tablet [address], [address], 4 17:30:48 metoprolol succinate ER 50 mg tablet,exte nded release 24 hr 2023 024 [facility], [address] [facility], [place], [address], 11:56:25 Patient TargetsNo targets recorded. Patient Instructions Encounter Date Encounter Id Patient Instructions Last Modified By Organization Details Last Modified Time 10/18/2023 [id number] body mass index: care instructions Not available 10/18/2023 11:44:15 learning about healthy weight Not available 10/18/2023 11:44:15 Discussed importance of taking medication as directed Will avoid ANTONIO and ARB for now Will increase BB for better HTN control Will call with results of labs once available Will see in 4 weeks for repeat of Thyroid labs Printed list of current medications given to patient at end of visit To call office for any questions, concerns or issues Not available 10/18/2023 12:01:09 03/30/2024 [id number] body mass index: care instructions Not available 03/30/2024 18:21:35 learning about healthy weight Not available 03/30/2024 18:21:35 Advised to take medication as directed Printed up copy of current medication list - explained to only take what is listed Will call with results of labs once available Encouraged to follow heart healthy lifestyle - low fat diet and aim for 30 minutes of physical activity per day To call office for questions, concerns or issues Not available 04/03/2024 18:03:12 07/12/2024 [id number] Advised to take medication as directed Encouraged to use braces to bilateral for support To call office for questions, concerns or issues Not available 07/12/2024 18:14:30 10/19/2024 [id number] Plan for next steps: Not available 10/19/2024 09:35:19 Due to the natur e of telemedicine the ability to do a physical assessment was limited to what can be accomplished by patient directed video conferencing. Those limits are understood by the patient and myself. Impression is based on history, available information and physical findings accomplished with video assistance. Risk and benefits of any new medications were discussed and all questions answered. Advised to call for new, worsening or persistent symptoms. 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 Not Available [facility] ([facility]) [address] [facility], [place], [address], 10/01/2023 03:37:45 09/29/1910/01/2023 TSH+F REE T4 T4,free(dire ct) 0.10 NG/dL 0.82-1 .77 below low normal Benito ified by repea t alon sis Not Available [facility] ([facility]) [address] [place], [address], 10/01/2023 03:37:45 09/29/19 24 09/30/2023 CBC WITH DIFFE RENTI AL/PL ATELE T WBC 8.6 x10e3 /uL 3.4-10 .8 Not Available [facility] ([facility]) [address] [facility], [place], [address], 10/01/2023 03:37:46 09/29/19 24 09/30/2023 CBC WITH DIFFE RENTI AL/PL ATELE T RBC 4.50 x10e6 /uL 3.77-5 .28 Not Available [facility] ([facility]) [address] [facility], [place], [address], 10/01/2023 03:37:46 09/29/19 24 09/30/2023 CBC WITH DIFFE RENTI AL/PL ATELE T hemoglobin 13.7 g/dL 11.1-1 5.9 Not Available [facility] ([facility]) [address] [facility], [place], [address], 10/01/2023 03:37:46 09/29/19 24 09/30/2023 CBC WITH DIFFE RENTI AL/PL ATELE T hematocrit 41.2 % 34.0-4 6.6 Not Available [facility] ([facility]) [address] [facility], [place], [address], 10/01/2023 03:37:46 09/29/19 24 09/30/2023 CBC WITH DIFFE RENTI AL/PL ATELE T MCV 92 fL 79-97 Not Available [facility] ([facility]) [address] [place], [address], 10/01/2023 03:37:46 09/29/19 24 09/30/2023 CBC WITH DIFFE RENTI AL/PL ATELE T MCH 30.4 pg 26.6-3 3.0 Not Available [facility] ([facility]) [address] [place], [address], 10/01/2023 03:37:46 09/29/19 24 09/30/2023 CBC WITH DIFFE RENTI AL/PL ATELE T MCHC 33.3 g/dL 31.5-3 5.7 Not Available [facility] ([facility]) [address] [place], [address], 10/01/2023 03:37:46 09/29/19 24 09/30/2023 CBC WITH DIFFE RENTI AL/PL ATELE T RDW 15.0 % 11.7-1 5.4 Not Available [facility] ([facility]) [address] [facility], [place], [address], 10/01/2023 03:37:46 09/29/19 24 09/30/2023 CBC WITH DIFFE RENTI AL/PL ATELE T platelets 385 x10e3 /uL 150-45 0 Not Available [facility] ([facility]) [address] [facility], [place], [address], 10/01/2023 03:37:46 09/29/19 24 09/30/2023 CBC WITH DIFFE RENTI AL/PL ATELE T neutrophils 59 % not estab. Not Available [facility] ([facility]) [address] [facility], [place], [address], 10/01/2023 03:37:46 09/29/19 24 09/30/2023 CBC WITH DIFFE RENTI AL/PL ATELE T lymphs 31 % not estab. Not Available [facility] ([facility]) [address] [facility], [place], [address], 10/01/2023 03:37:46 09/29/19 24 09/30/2023 CBC WITH DIFFE RENTI AL/PL ATELE T monocytes 5 % not estab. Not Available [facility] ([facility]) [address] [facility], [place], [address], 10/01/2023 03:37:46 09/29/19 24 09/30/2023 CBC WITH DIFFE RENTI AL/PL ATELE T eos 4 % not estab. Not Available [facility] ([facility]) [address] [facility], [place], [address], 10/01/2023 03:37:46 09/29/19 24 09/30/2023 CBC WITH DIFFE RENTI AL/PL ATELE T basos 1 % not estab. 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 0 Not Available [facility] ([facility]) [address] [place], [address], 10/01/2023 03:37:46 09/29/19 24 09/30/2023 CBC WITH DIFFE RENTI AL/PL ATELE T lymphs (absolute) 2.7 x10e3 /uL 0.7-3. 1 Not Available [facility] ([facility]) [address] [place], [address], 10/01/2023 03:37:46 09/29/19 24 09/30/2023 CBC WITH DIFFE RENTI AL/PL ATELE T monocytes(ab solute) 0.4 x10e3 /uL 0.1-0. 9 Not Available [facility] ([facility]) [address] [place], [address], 10/01/2023 03:37:46 09/29/19 24 09/30/2023 CBC WITH DIFFE RENTI AL/PL ATELE T eos (absolute) 0.3 x10e3 /uL 0.0-0. 4 Not Available [facility] ([facility]) [address] [place], [address], 10/01/2023 03:37:46 09/29/19 24 09/30/2023 CBC WITH DIFFE RENTI AL/PL ATELE T baso (absolute) 0.1 x10e3 /uL 0.0-0. 2 Not Available [facility] ([facility]) [address] [place], [address], 10/01/2023 03:37:46 09/29/19 24 09/30/2023 CBC WITH DIFFE RENTI AL/PL ATELE T immature granulocytes 0 % not estab. Not Available [facility] ([facility]) [address] [facility], [place], [address], 10/01/2023 03:37:46 09/29/19 24 09/30/2023 CBC WITH DIFFE RENTI AL/PL ATELE T immature grans (abs) 0.0 x10e3 /uL 0.0-0. 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 METAB OLIC PANEL (14) glucose 118 mg/dL 70-99 above high normal Not Available [facility] ([facility]) [address] [facility], [place], [address], 10/01/2023 03:37:48 09/29/19 24 09/30/2023 COMP. METAB OLIC PANEL (14) BUN 29 mg/dL 6-24 above high normal Not Available [facility] ([facility]) [address] [facility], [place], [address], 10/01/2023 03:37:48 09/29/19 24 09/30/2023 COMP. METAB OLIC PANEL (14) creatinine 1.51 mg/dL 0.57-1 .00 above high normal Not Available [facility] ([facility]) [address] [facility] [place], [address], 10/01/2023 03:37:48 09/29/19 24 09/30/2023 COMP. METAB OLIC PANEL (14) eGFR 41 mL/mi n/1.7 3 >59 below low normal Not Available [facility] ([facility]) [address] [facility] [place], [address], 10/01/2023 03:37:48 09/29/19 24 09/30/2023 COMP. METAB OLIC PANEL (14) BUN/creatini ne ratio 19 9-23 Not Available [facility] ([facility]) [address] [facility], [place], [address], 10/01/2023 03:37:48 09/29/19 24 09/30/2023 COMP. METAB OLIC PANEL (14) sodium 137 mmol/ L 134-14 4 Not Available [facility] ([facility]) [address] [place], [address], 10/01/2023 03:37:48 09/29/19 24 09/30/2023 COMP. METAB OLIC PANEL (14) potassium 3.5 mmol/ L 3.5-5. 2 Not Available [facility] ([facility]) [address] [place], [address], 10/01/2023 03:37:48 09/29/19 24 09/30/2023 COMP. METAB OLIC PANEL (14) chloride 93 mmol/ L 96-106 below low normal Not Available [facility] ([facility]) [address] [facility] [place], [address], 10/01/2023 03:37:48 09/29/19 24 09/30/2023 COMP. METAB OLIC PANEL (14) carbon dioxide, total 25 mmol/ L 20-29 Not Available [facility] ([facility]) [address] [facility] [place], [address], 10/01/2023 03:37:48 09/29/19 24 09/30/2023 COMP. METAB OLIC PANEL (14) calcium 10.6 mg/dL 8.7-10 .2 above high normal Not Available [facility] ([facility]) [address] [facility] [place], [address], 10/01/2023 03:37:48 09/29/19 24 09/30/2023 COMP. METAB OLIC PANEL (14) protein, total 8.3 g/dL 6.0-8. 5 Not Available [facility] ([facility]) [address] [facility] [place], [address], 10/01/2023 03:37:48 09/29/19 24 09/30/2023 COMP. METAB OLIC PANEL (14) albumin 5.4 g/dL 3.8-4. 9 above high normal Not Available [facility] ([facility]) [address] [facility] [place], [address], 10/01/2023 03:37:48 09/29/19 24 09/30/2023 COMP. METAB OLIC PANEL (14) globulin, total 2.9 g/dL 1.5-4. 5 Not Available [facility] ([facility]) [address] [facility] [place], [address], 10/01/2023 03:37:48 09/29/19 24 09/30/2023 COMP. METAB OLIC PANEL (14) A/G ratio 1.9 1.2-2. 2 Not Available [facility] ([facility]) [address] [facility] [place], [address], 10/01/2023 03:37:48 09/29/19 24 09/30/2023 COMP. METAB OLIC PANEL (14) bilirubin, total 0.4 mg/dL 0.0-1. 2 Not Available [facility] ([facility]) [address] [facility] [place], [address], 10/01/2023 03:37:48 09/29/19 24 09/30/2023 COMP. METAB OLIC PANEL (14) alkaline phosphatase 90 IU/L 44-121 Not Available [facility] ([facility]) [address] [facility] [place], [address], 10/01/2023 03:37:48 09/29/19 24 09/30/2023 COMP. METAB OLIC PANEL (14) AST (SGOT) 89 IU/L 0-40 above high normal Not Available [facility] ([facility]) [address] [facility], [place], [address], 10/01/2023 03:37:48 09/29/19 24 09/30/2023 COMP. METAB OLIC PANEL (14) ALT (SGPT) 61 IU/L 0-32 above high normal Not Available [facility] ([facility]) [address] [facility], [place], [address], 10/01/2023 03:37:48 09/29/19 24 09/30/2023 B-TYP E NATRI URETI C PEPTI DE B-type natriuretic peptide COMMEN T pg/mL Test not perfo rmed. No froze n plasm a recei regine. Sieme ns ADVIA Centa ur XP metho dolog y Not Available [facility] ([facility]) [address] [facility], [place], [address], 10/01/2023 03:37:49 09/29/19 24 09/30/2023 MAGNE SIUM magnesium 2.1 mg/dL 1.6-2. 3 Not Available [facility] ([facility]) [address] [facility], [place], [address], 10/01/2023 03:37:50 09/29/19 24 09/30/2023 SPECI MEN STATU S REPOR T specimen status report COMMEN T Test not perfo rmed. No froze n plasm a recei regine. TEST: [id number] B-Typ e Natri ureti c Pepti de Not Available [facility] ([facility]) [address] [facility], [place], [address], 10/01/2023 03:37:51 09/29/19 24 09/30/2023 PLEPELON E NOTE please note Commen t The date and/o r time of colle ction was not indic ated on the requi sitio n as requi red by state and [place] law. The date of recei pt of the speci men was used as the colle ction date if not suppl ied. Not Available [facility] ([facility]) [address] [facility], [place], [address], 10/01/2023 03:37:52 10/18/19 24 10/19/2023 COMP. METAB OLIC PANEL (14) glucose 103 mg/dL 70-99 above high normal Not Available [facility] ([facility]) [address] [place], [address], 10/19/2023 07:37:18 10/18/19 24 10/19/2023 COMP. METAB OLIC PANEL (14) BUN 22 mg/dL 6-24 Not Available [facility] ([facility]) [address] [place], [address], 10/19/2023 07:37:18 10/18/19 24 10/19/2023 COMP. METAB OLIC PANEL (14) creatinine 1.03 mg/dL 0.57-1 .00 above high normal Not Available [facility] ([facility]) [address] [place], [address], 10/19/2023 07:37:18 10/18/19 24 10/19/2023 COMP. METAB OLIC PANEL (14) eGFR 65 mL/mi n/1.7 3 >59 Not Available [facility] ([facility]) [address], [place], [address], 10/19/2023 07:37:18 10/18/19 24 10/19/2023 COMP. METAB OLIC PANEL (14) BUN/creatini ne ratio 21 9-23 Not Available [facility] ([facility]) [address], [place], [address], 10/19/2023 07:37:18 10/18/19 24 10/19/2023 COMP. METAB OLIC PANEL (14) sodium 141 mmol/ L 134-14 4 Not Available [facility] ([facility]) [address] [facility] [place], [address], 10/19/2023 07:37:18 10/18/19 24 10/19/2023 COMP. METAB OLIC PANEL (14) potassium 3.9 mmol/ L 3.5-5. 2 Not Available [facility] ([facility]) [address] [facility], [place], [address], 10/19/2023 07:37:18 10/18/19 24 10/19/2023 COMP. METAB OLIC PANEL (14) chloride 101 mmol/ L 96-106 Not Available [facility] ([facility]) [address] [facility] [place], [address], 10/19/2023 07:37:18 10/18/19 24 10/19/2023 COMP. METAB OLIC PANEL (14) carbon dioxide, total 23 mmol/ L 20-29 Not Available [facility] ([facility]) [address] [facility], [place], [address], 10/19/2023 07:37:18 10/18/19 24 10/19/2023 COMP. METAB OLIC PANEL (14) calcium 10.0 mg/dL 8.7-10 .2 Not Available [facility] ([facility]) [address] [facility] [place], [address], 10/19/2023 07:37:18 10/18/19 24 10/19/2023 COMP. METAB OLIC PANEL (14) protein, total 7.4 g/dL 6.0-8. 5 Not Available [facility] ([facility]) [address], [place], [address], 10/19/2023 07:37:18 10/18/19 24 10/19/2023 COMP. METAB OLIC PANEL (14) albumin 4.8 g/dL 3.8-4. 9 Not Available [facility] ([facility]) [address], [place], [address], 10/19/2023 07:37:18 10/18/19 24 10/19/2023 COMP. METAB OLIC PANEL (14) globulin, total 2.6 g/dL 1.5-4. 5 Not Available [facility] ([facility]) [address] [place], [address], 10/19/2023 07:37:18 10/18/19 24 10/19/2023 COMP. METAB OLIC PANEL (14) A/G ratio 1.8 1.2-2. 2 Not Available [facility] ([facility]) [address] [place], [address], 10/19/2023 07:37:18 10/18/19 24 10/19/2023 COMP. METAB OLIC PANEL (14) bilirubin, total 0.3 mg/dL 0.0-1. 2 Not Available [facility] ([facility]) [address] [place], [address], 10/19/2023 07:37:18 10/18/19 24 10/19/2023 COMP. METAB OLIC PANEL (14) alkaline phosphatase 108 IU/L 44-121 Not Available [facility] ([facility]) [address], [place], [address], 10/19/2023 07:37:18 10/18/19 24 10/19/2023 COMP. METAB OLIC PANEL (14) AST (SGOT) 40 IU/L 0-40 Not Available [facility] ([facility]) [address] [facility] [place], [address], 10/19/2023 07:37:18 10/18/19 24 10/19/2023 COMP. METAB OLIC PANEL (14) ALT (SGPT) 50 IU/L 0-32 above high normal Not Available [facility] ([facility]) [address] [facility] [place], [address], 10/19/2023 07:37:18 04/10/2004/11/2024 TSH+F REE T4 TSH 95.400 uIU/m L 0.450- 4.500 above high normal Not Available [facility] ([facility]) [address] [place], [address], 04/11/2024 07:37:57 04/10/2004/11/2024 TSH+F REE T4 T4,free(dire ct) 0.10 NG/dL 0.82-1 .77 below low normal Not Available [facility] ([facility]) [address] [place], [address], 04/11/2024 07:37:57 04/10/2004/11/2024 CBC WITH DIFFE RENTI AL/PL ATELE T WBC 6.4 x10e3 /uL 3.4-10 .8 normal Not Available [facility] ([facility]) [address] [place], [address], 04/11/2024 07:37:58 04/10/2004/11/2024 CBC WITH DIFFE RENTI AL/PL ATELE T RBC 4.36 x10e6 /uL 3.77-5 .28 normal Not Available [facility] ([facility]) [address] [place], [address], 04/11/2024 07:37:58 04/10/2008 0404/11/2024 CBC WITH DIFFE RENTI AL/PL ATELE T hemoglobin 13.2 g/dL 11.1-1 5.9 normal Not Available [facility] ([facility]) [address] [facility], [place], [address], 04/11/2024 07:37:58 04/10/2004/11/2024 CBC WITH DIFFE RENTI AL/PL ATELE T hematocrit 41.1 % 34.0-4 6.6 normal Not Available [facility] ([facility]) [address] [facility], [place], [address], 04/11/2024 07:37:58 04/10/2004/11/2024 CBC WITH DIFFE RENTI AL/PL ATELE T MCV 94 fL 79-97 normal Not Available [facility] ([facility]) [address] [place], [address], 04/11/2024 07:37:58 04/10/2004/11/2024 CBC WITH DIFFE RENTI AL/PL ATELE T MCH 30.3 pg 26.6-3 3.0 normal Not Available [facility] ([facility]) [address] [place], [address], 04/11/2024 07:37:58 04/10/2004/11/2024 CBC WITH DIFFE RENTI AL/PL ATELE T MCHC 32.1 g/dL 31.5-3 5.7 normal Not Available [facility] ([facility]) [address] [place], [address], 04/11/2024 07:37:58 04/10/2004/11/2024 CBC WITH DIFFE RENTI AL/PL ATELE T RDW 15.0 % 11.7-1 5.4 Not Available [facility] ([facility]) [address] [place], [address], 04/11/2024 07:37:58 04/10/20 24 04/11/2024 CBC WITH DIFFE RENTI AL/PL ATELE T platelets 290 x10e3 /uL 150-45 0 normal Not Available [facility] Lab) [address] [facility], [place], [address], 04/11/2024 07:37:58 04/10/20 24 04/11/2024 CBC WITH DIFFE RENTI AL/PL ATELE T neutrophils 59 % not estab. normal Not Available [facility] ([facility]) [address] [facility], [place], [address], 04/11/2024 07:37:58 04/10/20 24 04/11/2024 CBC WITH DIFFE RENTI AL/PL ATELE T lymphs 32 % not estab. normal Not Available [facility] ([facility]) [address] [facility], [place], [address], 04/11/2024 07:37:58 04/10/20 24 04/11/2024 CBC WITH DIFFE RENTI AL/PL ATELE T monocytes 5 % not estab. normal Not Available [facility] ([facility]) [address] [facility], [place], [address], 04/11/2024 07:37:58 04/10/20 24 04/11/2024 CBC WITH DIFFE RENTI AL/PL ATELE T eos 3 % not estab. normal Not Available [facility] ([facility]) [address] [facility], [place], [address], 04/11/2024 07:37:58 04/10/20 24 04/11/2024 CBC WITH DIFFE RENTI AL/PL ATELE T basos 1 % not estab. 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 0 normal Not Available [facility] ([facility]) [address] [place], [address], 04/11/2024 07:37:58 04/10/20 24 04/11/2024 CBC WITH DIFFE RENTI AL/PL ATELE T lymphs (absolute) 2.0 x10e3 /uL 0.7-3. 1 normal Not Available [facility] ([facility]) [address] [place], [address], 04/11/2024 07:37:58 04/10/20 24 04/11/2024 CBC WITH DIFFE RENTI AL/PL ATELE T monocytes(ab solute) 0.3 x10e3 /uL 0.1-0. 9 normal Not Available [facility] ([facility]) [address] [place], [address], 04/11/2024 07:37:58 04/10/20 24 04/11/2024 CBC WITH DIFFE RENTI AL/PL ATELE T eos (absolute) 0.2 x10e3 /uL 0.0-0. 4 normal Not Available [facility] ([facility]) [address] [place], [address], 04/11/2024 07:37:58 04/10/20 24 04/11/2024 CBC WITH DIFFE RENTI AL/PL ATELE T baso (absolute) 0.1 x10e3 /uL 0.0-0. 2 normal Not Available [facility] ([facility]) [address] [place], [address], 04/11/2024 07:37:58 04/10/20 24 04/11/2024 CBC WITH DIFFE RENTI AL/PL ATELE T immature granulocytes 0 % not estab. Not Available [facility] ([facility]) [address] [facility], [place], [address], 04/11/2024 07:37:58 04/10/20 24 04/11/2024 CBC WITH DIFFE RENTI AL/PL ATELE T immature grans (abs) 0.0 x10e3 /uL 0.0-0. 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 METAB OLIC PANEL (14) glucose 117 mg/dL 70-99 above high normal Not Available [facility] ([facility]) [address] [facility], [place], [address], 04/11/2024 07:37:59 04/10/20 24 04/11/2024 COMP. METAB OLIC PANEL (14) BUN 19 mg/dL 6-24 normal Not Available [facility] ([facility]) [address] [place], [address], 04/11/2024 07:37:59 04/10/20 24 04/11/2024 COMP. METAB OLIC PANEL (14) creatinine 1.23 mg/dL 0.57-1 .00 above high normal Not Available [facility] ([facility]) [address] [facility] [place], [address], 04/11/2024 07:37:59 04/10/20 24 04/11/2024 COMP. METAB OLIC PANEL (14) eGFR 53 mL/mi n/1.7 3 >59 below low normal Not Available [facility] ([facility]) [address] [facility] [place], [address], 04/11/2024 07:37:59 04/10/20 24 04/11/2024 COMP. METAB OLIC PANEL (14) BUN/creatini ne ratio 15 9-23 normal Not Available [facility] ([facility]) [address] [facility] [place], [address], 04/11/2024 07:37:59 04/10/20 24 04/11/2024 COMP. METAB OLIC PANEL (14) sodium 140 mmol/ L 134-14 4 normal Not Available [facility] ([facility]) [address] [facility] [place], [address], 04/11/2024 07:37:59 04/10/20 24 04/11/2024 COMP. METAB OLIC PANEL (14) potassium 3.8 mmol/ L 3.5-5. 2 normal Not Available [facility] ([facility]) [address] [facility] [place], [address], 04/11/2024 07:37:59 04/10/20 24 04/11/2024 COMP. METAB OLIC PANEL (14) chloride 100 mmol/ L 96-106 normal Not Available [facility] ([facility]) [address] [facility] [place], [address], 04/11/2024 07:37:59 04/10/20 24 04/11/2024 COMP. METAB OLIC PANEL (14) carbon dioxide, total 23 mmol/ L 20-29 normal Not Available [facility] ([facility]) [address] [place], [address], 04/11/2024 07:37:59 04/10/20 24 04/11/2024 COMP. METAB OLIC PANEL (14) calcium 9.5 mg/dL 8.7-10 .2 normal Not Available [facility] ([facility]) [address] [place], [address], 04/11/2024 07:37:59 04/10/20 24 04/11/2024 COMP. METAB OLIC PANEL (14) protein, total 7.4 g/dL 6.0-8. 5 normal Not Available [facility] ([facility]) [address] [facility] [place], [address], 04/11/2024 07:37:59 04/10/20 24 04/11/2024 COMP. METAB OLIC PANEL (14) albumin 4.9 g/dL 3.8-4. 9 normal Not Available [facility] ([facility]) [address] [facility] [place], [address], 04/11/2024 07:37:59 04/10/20 24 04/11/2024 COMP. METAB OLIC PANEL (14) globulin, total 2.5 g/dL 1.5-4. 5 Not Available [facility] ([facility]) [address] [facility] [place], [address], 04/11/2024 07:37:59 04/10/20 24 04/11/2024 COMP. METAB OLIC PANEL (14) bilirubin, total 0.5 mg/dL 0.0-1. 2 normal Not Available [facility] ([facility]) [address] [facility] [place], [address], 04/11/2024 07:37:59 04/10/20 24 04/11/2024 COMP. METAB OLIC PANEL (14) alkaline phosphatase 86 IU/L 44-121 normal Not Available [facility] ([facility]) [address] [facility] [place], [address], 04/11/2024 07:37:59 04/10/20 24 04/11/2024 COMP. METAB OLIC PANEL (14) AST (SGOT) 46 IU/L 0-40 above high normal Not Available [facility] ([facility]) [address] [facility] [place], [address], 04/11/2024 07:37:59 04/10/20 24 04/11/2024 COMP. METAB OLIC PANEL (14) ALT (SGPT) 35 IU/L 0-32 above high normal Not Available [facility] ([facility]) [address] [facility] [place], [address], 04/11/2024 07:37:59 04/10/20 24 04/11/2024 VITAM IN B12 AND FOLAT E vitamin B12 496 pg/mL 232-12 45 normal Not Available [facility] ([facility]) [address] [facility] [place], [address], 04/11/2024 07:38:00 04/10/20 24 04/11/2024 VITAM IN B12 AND FOLAT E folate (folic acid), serum 11.3 NG/mL >3.0 normal A serum folat e ren ntrat ion of less than 3.1 ng/mL is consi dered to repre sent clini lynn defic iency . Not Available [facility] ([facility]) [address] [facility], [place], [address], 04/11/2024 07:38:00 04/10/20 24 04/11/2024 VITAM IN D, 25-HY DROXY vitamin D, 25-hydroxy 20.4 NG/mL 30.0-1 00.0 below low normal Vitam in D defic iency has been defin ed by the Insti tute of Medic ine and an Endoc rine Socie ty pract ice guide line as a level of serum 25-OH vitam in D less than 20 ng/mL (1,2) . The Endoc rine Socie ty went on to furth er defin e vitam in D insuf ficie ncy as a level betwe en 21 and 29 ng/mL (2). 1. IOM (Inst itute of Medic ine). 2010. Dieta ry refer ence intsara es for calci um and D. Clyde butler [place]: The [facility] . 2. Melisa k MF, Binkl ey [place], Bisch off-F errar i SANDOVAL, et al. Evalu ation , treat ment, and preve ntion of vitam in D defic iency : an Endoc rine Socie ty clini lynn pract ice guide line. JCEM. 2010; 96(7) :1911 -30. Not Available [facility] ([facility]) [address] [facility], [place], [address], 04/11/2024 07:38:01 04/10/20 24 04/11/2024 MAGNE SIUM magnesium 2.0 mg/dL 1.6-2. 3 normal Not Available [facility] ([facility]) [address] [facility], [place], [address], 04/11/2024 07:38:02 09/22/19 24 09/23/2023 elect kimberly baer am No observ ation record ed. [email or web address] [place] [address] [place], [address], 09/23/2023 10:41:57 10/12/19 24 10/08/2023 , echoc ardio gram, trans thora cic, compl ete No observ ation record ed. Not Available 2023 14:57:22 10/14/19 24 09/22/2023 elect kimberly baer am No observ ation record ed. Pending sale to [facility] [address] [place], [address], 10/14/2023 10:28:58 12/28/19 25 12/14/2024 DEXA, axial skele ton No observ ation record ed. [employer] [address] [facility] [address] [place], [address], 12/28/2024 13:33:38 Result Notes None recorded. Problems Name Problem SNOMED Code Status Onset Date Resolution Date Notes Provider Name and Address Organization Details Recorded Time Hypothyr oidism 73145743 Active Geovanna Mar null, [place] - [facility] 09:39:26 Chronic obstruct clemencia pulmonar y disease 19835999 Active Geovanna Mar [place] - [facility] 09:39:32 Pulmonar y embolism 84195593 Active Geovanna Mar [place] - [facility] 09:39:59 Chronic back pain 364768621 Active Geovanna Mar [place] [facility] 09:40:41 Anemia 776773655 Active Melissia Isela [place] - [facility] 16:35:04 Anxiety 11903291 Active Melissia Isela [place] [facility] 16:35:18 Gastroes ophageal reflux disease 556641770 Active Melissia Isela [place] [facility] 16:35:32 Hyperlip idemia 38766630 Active Melissia Isela [place] [facility] 16:35:44 Hyperten sive disorder 04868640 Active Melissia [place] [facility] 16:35:57 Peripher al arterial occlusiv e disease 271577595 Active Melissia Isela [place] [facility] 16:36:11 Suspecte d COVID-19 227885424 Completed 201907/03/2020 Removal Reason: Problem marked historic al by user [email or web address] from the COVID-19 watch flag Meera Guerra RN [address], [place], [address] , [place] - [facility] 0 14:40:52 Pain of right wrist [id number] 9100 Completed 202009/29/2023 Meera Saucedo null, [place] - [facility] 4 17:06:28 Influenz a caused by Influenz a B virus 35496583 Completed 202309/29/2023 Meera herrera, [place] - [facility] 4 17:06:22 Paresthe destinee of upper limb 02609541 Active 2023 Honorio Love PA-C [address], [place], [address] , [place] - [facility] 4 18:09:54 Edema 870224580 Active 2023 Yolanda David, NETWORK [employer]IC[employer] [address], [place], [address] , [place] [facility] 4 17:44:32 Essentia l hyperten elizabeth 84335124 Active 2023 Yolanda David, NETWORK PRIC[employer] CONSULTANT [address], [place], [address] , [place] [facility] 13:09:56 Acute renal insuffic iency 418399295 Active 2023 Yolanda David, NETWORK PRIC[employer] CONSULTANT [address], [place], [address] , [place] [facility] 10:28:12 Livedo reticula ris 226038934 Active 2023 Yolanda David, NETWORK PRIC[employer] CONSULTANT [address], [place], [address] , [place] [facility] 4 10:44:07 Vitamin D deficien cy 44077177 Active 2023 Yolanda David, NETWORK PRIC[employer] CONSULTANT [address], [place], [address] , [place] [facility] 16:15:19 Renal insuffic iency 250562551 Active 2023 Yolanda David, NETWORK PRIC[employer] CONSULTANT [address], [place], [address] , [place] [facility] 16:16:48 Obesity 059577893 Active 2023 Yolanda David, NETWORK PRIC[employer] CONSULTANT [address], [place], [address] , [place] [facility] 4 11:57:57 Acute lower respirat ory tract infectio n 598528801 Active 2024 Yolanda David, NETWORK PRIC[employer] CONSULTANT [address], [place], [address] , [place] [facility] 13:32:23 Osteopen ia 970570433 Active 2024 Yolanda David, NETWORK PRIC[employer] CONSULTANT [address], [place], [address] , [place] - [facility] 5 13:42:29 Bone pain 15329243 Active 2024 Yolanda David, NETWORK PRIC[employer] CONSULTANT [address], [place], [address] , [place] - [facility] 13:42:40 Morbid obesity 591579453 Active 2024 Yolanda David, NETWORK PRICING CONSULTANT [address], [place], [address] , [place] - [facility] 13:10:16 Problem Notes None recorded. Procedures Surgical History Date Name Laterality Status Provider Name and Address Organization Details Recorded Time 10/18/19 24 Medication Reconcilliation completed Crystal Sheryl [place] - [facility] 10/18/2023 09:58:27 04/05/20 20 Diastolic B/P greater than or equal to 90 mm Hg completed Crystal Sheryl [place] - [facility] 04/05/2020 16:27:12 04/05/20 20 Systolic B/P greater than or equal to 140 mm Hg completed Crystal Sheryl [place] [facility] 04/05/2020 16:27:07 09/22/19 20 Systolic B/P less than 130 mm Hg completed Crystal Sheryl [place] [facility] 09/22/2019 16:52:10 09/22/19 20 Diastolic B/P less than 80 mm Hg completed Crystal Sheryl [place] [facility] 09/22/2019 16:52:18 09/26/19 19 Systolic B/P less than 130 mm Hg completed Sherlyn Obrien [place] [facility] 09/26/2018 14:20:37 09/26/19 19 Diastolic B/P less than 80 mm Hg completed Sherlyn Obrien [place] [facility] 09/26/2018 14:20:40 delivery completed Manpreet Weiss [place] - [facility] 06/17/2016 16:42:14 Imaging Results None recorded. Procedure Notes None recorded. Medical Equipment None Reported. Allergies Allergen ID Allergen Name Allergen Category Reaction Reaction Severity Criticality Documentation Date Start Date Code Code System Note Provider Name and Address Organization Details Recorded Time 616674 Product containin g penicilli n (product) medicatio n hives Not available Not available 08/24/2019 73827 8001 SNOMED Nuzhat Sharp null, [place] - [facility] 0 14:40:50 Medications Name Sig Start Date Stop Date Status Note LastModified by Organization Details LastModified Time Prescript ion - Clarifica tion 04/05 completed [employer] Not Available Not Available Not Available Prescript ion - Prior Authoriza tion Request active Not Available Not Available Not Available cyclobenz aprine 10 mg tablet TAKE ONE TABLET BY MOUTH TWICE DAILY 09/29 completed Not Available Not Available Not Available amoxicill in 500 mg capsule take 1 capsule (500 mg) by oral route every 8 hours for 10 days 03/03 completed Not Available Not Available Not Available atorvasta tin 40 mg tablet Take 1 tablet every day by oral route for 90 days. active Not Available Not Available No t Available Augmentin 875 mg-125 mg tablet Take 1 tablet every 12 hours by oral route for 7 days. 01/26 completed Not Available Not Available Not Available levothyro xine 175 mcg tablet TAKE ONE (1) TABLET EVERY DAY BY ORAL ROUTE FOR 30 DAYS. active Not Available Not Available No t Available promethaz ine-DM 6.25 mg-15 mg/5 mL oral syrup Take 5 mL every 6 hours by oral route. 04/21 completed Not Available Not Available Not Available Aviane 0.1 mg-20 mcg tablet TAKE ONE TABLET BY MOUTH ONCE DAILY DIRECTED 04/01 completed Not Available Not Available Not Available prednison e 10 mg tablet 09/29 completed Not Available Not Available Not Available venlafaxi ne ER 75 mg capsule,e xtended release 24 hr take 1 capsule (75 mg) by oral route once daily with food for 30 days 03/14 completed venlafax ine 75 mg oral capsule, extended release 24hr;Pre scribe Status: Prescrib ed on: 04/24/20 16 4:51PM;U ser: [email or web address]; Est. Completi on: 05/23/20 16;Indic ation: Generali zed Anxiety Disorder - ();Ranulfo Dobson fied: 04/24/20 16 4:51PM Not Available Not Available Not Available gabapenti n 600 mg tablet TAKE 1 TABLET THREE TIMES DAILY X 30 DAYS. 09/21 completed Not Available Not Available Not Available doxycycli ne hyclate 100 mg capsule TAKE ONE (1) CAPSULE TWICE A DAY BY ORAL ROUTE FOR 7 DAYS. active Not Available Not Available No t Available atorvasta tin 20 mg tablet 09/29 completed Not Available Not Available Not Available ropinirol e 1 mg tablet 10/15 completed Not Available Not Available Not Available venlafaxi ne 75 mg tablet 09/29 completed Not Available Not Available Not Available clindamyc in HCl 300 mg capsule Take 1 capsule 4 times a day by oral route for 10 days. 09/21 completed Not Available Not Available Not Available albuterol sulfate 2.5 mg/3 mL (0.083 %) solution for nebulizat ion 05/07 completed Not Available Not Available Not Available cetirizin e 10 mg tablet TAKE ONE (1) TABLET BY MOUTH DAILY active Not Available Not Available No t Available azithromy betty 250 mg tablet TAKE 2 TABLETS (500 MG) BY ORAL ROUTE ONCE DAILY FOR 1 DAY THEN 1 TABLET (250 MG) BY ORAL ROUTE ONCE DAILY FOR 4 DAYS active Not Available Not Available No t Available ibuprofen 800 mg tablet TAKE ONE (1) TABLET THREE (3) TIMES A DAY BY ORAL ROUTE FOR 90 DAYS. 2024 active Not Available Not Available Not Avai lable metoprolo l succinate ER 50 mg tablet,ex tended release 24 hr TAKE ONE (1) TABLET EVERY DAY BY ORAL ROUTE FOR 30 DAYS. active Not Available Not Available No t Available clarithro mycin 500 mg tablet 10/15 completed Not Available Not Available Not Available hydrocodo ne 5 mg-acetam inophen 325 mg tablet 09/22 completed Not Available Not Available Not Available meloxicam 15 mg tablet 03/14 completed Not Available Not Available Not Available sucralfat e 1 gram tablet 04/05 completed Not Available Not Available Not Available phenazopy ridine 200 mg tablet 04/04 completed Not Available Not Available Not Available sumatript an 25 mg tablet Take 1 tablet by oral route. 04/04 completed Not Available Not Available Not Available ondansetr on HCl 4 mg tablet take 1 tablet by oral route 4 times a day as needed for 1 day 09/29 completed Not Available Not Available Not Available famotidin e 40 mg tablet 04/05 completed Not Available Not Available Not Available prednison e 20 mg tablet TAKE 2 TABLETS BY MOUTH ONCE DAILY FOR 5 DAYS THEN 1 TABLET ONCE DAILY FOR 5 DAYS 11/05 completed Not Available Not Available Not Available valsartan 160 mg-hydroc hlorothia zide 12.5 mg tablet TAKE ONE TABLET BY MOUTH ONCE DAILY FOR 30 DAYS 05/07 completed Not Available Not Available Not Available sertralin e 100 mg tablet TAKE ONE TABLET BY MOUTH ONCE DAILY FOR 30 DAYS 09/29 completed Not Available Not Available Not Available topiramat e 25 mg tablet TAKE ONE TABLET BY MOUTH ONCE DAILY 09/22 completed Not Available Not Available Not Available clopidogr el 75 mg tablet TAKE 1 TABLET BY MOUTH DAILY. 09/29 completed Not Available Not Available Not Available omeprazol e 40 mg capsule,d elayed release TAKE ONE (1) CAPSULE EVERY DAY BY ORAL ROUTE DIRECTED FOR 30 DAYS. active Not Available Not Available No t Available aspirin 81 mg tablet,de layed release TAKE ONE (1) TABLET EVERY DAY BY ORAL ROUTE. active Not Available Not Available No t Available simvastat in 40 mg tablet TAKE ONE TABLET BY MOUTH ONCE DAILY IN THE EVENING FOR 30 DAYS 03/30 completed Not Available Not Available Not Available acyclovir 800 mg tablet TAKE ONE (1) TABLET THREE TIMES A DAY FOR 10 DAYS. 10/15 completed Not Available Not Available Not Available ondansetr on 8 mg disintegr ating tablet Place 1 tablet twice a day by translin gual route as needed. 03/14 completed Not Available Not Available Not Available levothyro xine 25 mcg tablet take 1 tablet (25 mcg) by oral route once daily for 30 days 01/28 completed levothyr oxine 25 mcg oral tablet;R ecorded Status: Recorded on: 12/24/19 11 4:25PM;D iscontin ued Status: Disconti nued on: 01/29/20 11 3:45PM;U ser: [email or web address]; Est. Completi on: 01/23/20 11;Print ed: 12/24/19 11 Not Available Not Available Not Available bisoprolo l fumarate 10 mg tablet TAKE 1 TABLET BY MOUTH 2 TIMES A DAY. 09/29 completed Not Available Not Available Not Available dexametha sone sodium phosphate 0.1 % eye drops 10/15 completed Not Available Not Available Not Available bisoprolo l fumarate 5 mg tablet Take 1 tablet every day by oral route. 10/17 completed Not Available Not Available Not Available levothyro xine 100 mcg tablet Take 2 tablets every day by oral route. 08/24 completed Not Available Not Available Not Available alprazola m 0.5 mg tablet TAKE 1 TABLET BY MOUTH TWICE DAILY NEEDED FOR 30 DAYS. 10/17 completed Not Available Not Available Not Available ofloxacin 0.3 % ear drops 10/15 completed Not Available Not Available Not Available famotidin e 20 mg tablet TAKE 1 TABLET BY MOUTH DAILY. 09/29 completed Not Available Not Available Not Available methocarb shaun 750 mg tablet 03/14 completed Not Available Not Available Not Available temazepam 15 mg capsule take 1 capsule (15 mg) by oral route once daily at bedtime as needed 01/19 completed temazepa m 15 mg oral capsule; Recorded Status: Recorded on: 05/19/20 10 11:03AM; Disconti nued Status: Disconti nued on: 01/20/20 14 1:21PM;U ser: [email or web address] Not Available Not Available Not Available Klonopin 0.5 mg tablet Take 1 tablet 3 times a day by oral route. 08/24 completed Not Available Not Available Not Available Silvadene 1 % topical cream apply a 1/16 inch (1.5 mm) thick layer to entire burn area by topical route 2 times per day 04/23 completed Silvaden e 1 % topical cream;Pr escribe Status: Prescrib ed on: 11/18/19 16 3:19PM;D iscontin ued Status: Disconti nued on: 04/23/20 16 4:09PM;U ser: [email or web address];Pharma cyVerifi ed: 11/18/19 16 3:19PM Not Available Not Available Not Available Euthyrox 75 mcg tablet TAKE 1 TABLET BY MOUTH ONCE DAILY 05/07 completed Not Available Not Available Not Available dicyclomi ne 20 mg tablet Take 1 tablet every day by oral route as directed for 30 days. 09/29 completed Not Available Not Available Not Available amitripty line 10 mg tablet Take 1 tablet every day by oral route. 04/04 completed Not Available Not Available Not Available prochlorp erazine 25 mg rectal supposito ry 03/14 completed Not Available Not Available Not Available amlodipin e 10 mg tablet Take 1 tablet every day by oral route for 90 days. active Not Available Not Available No t Available benzonata te 100 mg capsule Take 1 capsule 3 times a day by oral route as needed for 7 days. 09/21 completed Not Available Not Available Not Available levothyro xine 50 mcg tablet take 1 tablet (50 mcg) by oral route once daily 10/09 completed levothyr oxine 50 mcg oral tablet;R ecorded Status: Recorded on: 04/06/20 14 12:55PM; Disconti nued Status: Disconti nued on: 10/09/19 15 9:03AM;U ser: [email or web address] ec Not Available Not Available Not Available hydrocodo ne 7.5 mg-acetam inophen 325 mg tablet 09/29 completed Not Available Not Available Not Available ropinirol e 2 mg tablet 10/15 completed Not Available Not Available Not Available cephalexi n 500 mg capsule 04/21 completed Not Available Not Available Not Available pantopraz ole 40 mg tablet,de layed release TAKE 1 TABLET BY MOUTH DAILY. 09/29 completed Not Available Not Available Not Available levothyro xine 125 mcg tablet take 1 tablet (125 mcg) by oral route once daily for 30 days 04/13 completed Not Available Not Available Not Available ropinirol e 0.5 mg tablet TAKE 1 TABLET BY MOUTH 1 TO 3 HOURS PRIOR TO BEDTIME. 09/29 completed Not Available Not Available Not Available ranitidin e 150 mg tablet TAKE 1 TABLET BY MOUTH TWICE DAILY 09/22 completed Not Available Not Available Not Available lidocaine 5 % topical patch APPLY 1 PATCH TOPICALL Y ONCE DAILY MAY WEAR UP TO 12 HOURS--m ay try 4% if 5 % won't go 05/07 completed Not Available Not Available Not Available promethaz ine 25 mg tablet 03/14 completed Not Available Not Available Not Available valsartan 320 mg tablet TAKE 1 TABLET BY MOUTH ONCE DAILY active Not Available Not Available No t Available levothyro xine 150 mcg tablet Take 1 tablet every day by oral route as directed for 30 days. 10/01 completed Not Available Not Available Not Available nitroglyc fernandez 0.4 mg sublingua l tablet DISSOLVE 1 TABLET UNDER THE TONGUE EVERY 5 MINUTES UP TO 3 DOSES NEEDED FOR CHEST PAIN - IF NO RELIEF CALL 911 active Not Available Not Available No t Available gabapenti n 300 mg capsule Take 1 capsule 3 times a day by oral route after meals for 30 days. 10/17 completed Not Available Not Available Not Available buspirone 7.5 mg tablet take 1 tablet (7.5 mg) by oral route 2 times per day for 30 days 10/22 completed buspiron e 7.5 mg oral tablet;c omment: shacking ;Recorde d Status: Recorded on: 07/23/20 10 2:03PM;D iscontin ued Status: Disconti nued on: 10/23/19 11 9:19AM;U ser: [email or web address];E st. Completi on: 08/22/19 11;Print ed: 07/23/20 10 Not Available Not Available Not Available diclofena c sodium 75 mg tablet,de layed release take 1 tablet (75 mg) by oral route 2 times per day for 30 days 03/14 completed diclofen ac sodium 75 mg oral tablet,d elayed release (/EC); Recorded Status: Recorded on: 12/26/19 15 2:04PM;D iscontin ued Status: Disconti nued on: 03/14/20 15 3:37PM;U ser: [email or web address]; Est. Completi on: 06/23/20 15 Not Available Not Available Not Available levothyro xine 200 mcg tablet TAKE ONE (1) TABLET EVERY DAY BY ORAL ROUTE FOR 90 DAYS. active Not Available Not Available No t Available furosemid e 20 mg tablet TAKE ONE (1) TABLET EVERY DAY BY ORAL ROUTE FOR 30 DAYS. active Not Available Not Available No t Available gabapenti n 100 mg capsule Take 1 capsule 3 times a day by oral route for 30 days. 10/23 completed Not Available Not Available Not Available metoprolo l succinate ER 25 mg tablet,ex tended release 24 hr TAKE 1 TABLET BY MOUTH EVERY DAY 10/17 completed Not Available Not Available Not Available ergocalci ferol (vitamin D2) 1,250 mcg (50,000 unit) capsule TAKE ONE (1) CAPSULE EVERY WEEK BY ORAL ROUTE FOR 90 DAYS. active Not Available Not Available No t Available dexametha sone sodium phosphate 4 mg/mL injection solution Inject 4 mg by intramus cular route. 09/21 completed Not Available Not Available Not Available levofloxa betty 500 mg tablet Take 1 tablet every 24 hours by oral route for 7 days. 03/03 completed Not Available Not Available Not Available benazepri l 40 mg tablet Take 1 tablet every day by oral route for 90 days. 03/30 completed Not Available Not Available Not Available methylpre dnisolone 4 mg tablets in a dose pack TAKE DIRECTED FOR SIX (6) DAYS active Not Available Not Available No t Available ferrous sulfate 325 mg (65 mg iron) tablet,de layed release Take 1 tablet every day by oral route for 30 days. 05/07 completed Not Available Not Available Not Available lisinopri l 40 mg tablet TAKE 1 TABLET BY MOUTH DAILY. 03/30 completed Not Available Not Available Not Available ondansetr on 4 mg disintegr ating tablet 12/21 completed Not Available Not Available Not Available cefdinir 300 mg capsule TAKE 1 CAPSULE BY MOUTH TWICE DAILY FOR 10 DAYS 09/21 completed Not Available Not Available Not Available fluticaso ne propionat e 50 mcg/actua tion nasal spray,mony pension inhale 1 puff by nasal route daily active Not Available Not Available No t Available sertralin e 50 mg tablet take 1 tablet (50 mg) by oral route once daily for 30 days 12/02 completed sertrali ne 50 mg oral tablet;R ecorded Status: Recorded on: 10/25/19 11 12:58PM; Disconti nued Status: Disconti nued on: 12/03/19 11 4:07PM;U ser: [email or web address]; Est. Completi on: 11/24/19 11;Print ed: 10/25/19 11 Not Available Not Available Not Available Diovan 160 mg tablet Take 1 tablet every day by oral route. 09/29 completed Not Available Not Available Not Available doxycycli ne hyclate 100 mg tablet 09/26 completed Not Available Not Available Not Available Ventolin HFA 90 mcg/actua tion aerosol inhaler INHALE TWO PUFFS BY MOUTH EVERY SIX (6) TO 8 HOURS active Not Available Not Available No t Available hydroxyzi ne pamoate 25 mg capsule take 1 capsule (25 mg) by oral route TID PRN for 30 days 04/04 completed Not Available Not Available Not Available enoxapari n 100 mg/mL subcutane ous syringe INJECT 100 MG (1 ML) TWICE A DAY BY SUBCUTAN EOUS ROUTE. 2024 active Not Available Not Available Not Avai lable azithromy betty 500 mg tablet 04/05 completed Not Available Not Available Not Available ciproflox acin 0.3 %-dexamet hasone 0.1 % ear drops,mony pension 10/15 completed Not Available Not Available Not Available Spiriva with [employer]iH[employer] r 18 mcg and inhalatio n capsules 04/05 completed Not Available Not Available Not Available duloxetin e 30 mg capsule,d elayed release TAKE ONE (1) CAPSULE EVERY DAY BY ORAL ROUTE FOR 30 DAYS. active Not Available Not Available No t Available chlorhexi dine gluconate 0.12 % mouthwash RINSE 15 ML IN MOUTH TWICE DAILY DIRECTED 09/29 completed Not Available Not Available Not Available Hydrocodo ne take one tablet every six hours PRN 10/29 completed Hydrocod one Oral 7.5 mg;Recor ded Status: Recorded on: 05/07/20 11 9:58AM;D iscontin ued Status: Disconti nued on: 10/30/19 15 1:24PM;U ser: [email or web address]; Est. Completi on: 06/06/20 11;Indic ation: Pain - (-5);Alma nted: 05/07/20 11 Not Available Not Available Not Available hydrocodo ne 7.5 mg-acetam inophen 300 mg tablet take 1 tablet by oral route every 6 hours as needed 03/03 completed hydrocod one-acet aminophe n 7.5-300 mg oral tablet;R ecorded Status: Recorded on: 04/23/20 16 3:26PM;U ser: [email or web address] Not Available Not Available Not Available Symbicort 160 mcg-4.5 mcg/actua tion HFA aerosol inhaler INHALE TWO (2) PUFFS TWICE A DAY BY INHALATI ON ROUTE active Not Available Not Available No t Available levocetir izine 5 mg tablet TAKE 1 TABLET BY MOUTH DAILY. 09/29 completed Not Available Not Available Not Available levothyro xine 25 mcg capsule Take 1 capsule every day by oral route. 08/24 completed Not Available Not Available Not Available Xarelto 15 mg tablet Take 1 tablet twice a day by oral route. 05/07 completed Not Available Not Available Not Available Xarelto 20 mg tablet 03/14 completed Not Available Not Available Not Available EpiPen 2-Nando 0.3 mg/0.3 mL injection , auto-inje ctor INJECT 0.3 ML INTO THE MUSCLE ONCE NEEDED FOR ANAPHYLA XIS 05/07 completed Not Available Not Available Not Available Spiriva Respimat 2.5 mcg/actua tion solution for inhalatio n 03/30 completed Not Available Not Available Not Available Stiolto Respimat 2.5 mcg-2.5 mcg/actua tion solution for inhalatio n INHALE 2 PUFFS BY MOUTH ONCE DAILY. 03/30 completed Not Available Not Available Not Available Breo Ellipta 200 mcg-25 mcg/dose powder for inhalatio n Inhale 1 puff every day by inhalati on route. 05/07 completed Not Available Not Available Not Available Lidocaine Pain Relief 4 % topical patch 04/05 completed Not Available Not Available Not Available Alahist PE 2 mg-7.5 mg tablet 09/29 completed Not Available Not Available Not Available Wegovy 0.25 mg/0.5 mL subcutane ous pen injector Inject 0.25 mg every week by subcutan eous route for 28 days. 10/23 completed Not Available Not Available Not Available Vitals Date Recorded Systolic blood pressure Diastolic blood pressure Provider Name and Address Organization Details Last Updated DateTime 10/18/2023 148 mm[Hg] 96 mm[Hg] Yolanda David, MARIELOS [address], [place], [address], [place] - [facility] 10/18/2023 11:57:23 Date Recorded Body height Body mass index (BMI) Body weight Heart rate Oxygen saturation Oxygen saturation in Arterial blood by Pulse oximetry Respiratory rate Systolic blood pressure Diastolic blood pressure Provider Name and Address Organization Details Last Updated DateTime 165.1 cm 41.9 kg/m2 190720. 28 g 104 /min 99 % 99 % 20 /min 142 mm[Hg] 90 mm[Hg] Crystal Sheryl [place] - [facility] 10:07:58 Date Recorded Body height Provider Name an d Address Organization Details Last Updated DateTime 10/19/2024 165.1 cm Crystal Sheryl [place] - [facility] 0301/2025 09:35:22 Date Recorded Body height Body mass index (BMI) Body weight Body temperature Oxygen saturation Oxygen saturation in Arterial blood by Pulse oximetry Respiratory rate Heart rate Systolic blood pressure Diastolic blood pressure Provider Name and Address Organization Details Last Updated DateTime 165.1 cm 42.8 kg/m2 290437. 24 g 98.7 [degF] 98 % 98 % 20 /min 88 /min 148 mm[Hg] 98 mm[Hg] Yolanda Euceda [place] - [facility] 5 13:10:58 Date Recorded Systolic blood pressure Diastolic blood pressure Provider Name and Address Organization Details Last Updated DateTime 03/30/2024 138 mm[Hg] 86 mm[Hg] Yolanda David APRN [address], [place], [address], [place] - [facility] 03/30/2024 17:25:32 Date Recorded Body height Body mass index (BMI) Body weight Heart rate Oxygen saturation Oxygen saturation in Arterial blood by Pulse oximetry Respiratory rate Systolic blood pressure Diastolic blood pressure Provider Name and Address Organization Details Last Updated DateTime 4 165.1 cm 40.8 kg/m2 477515. 13 g 89 /min 98 % 98 % 18 /min 146 mm[Hg] 100 mm[Hg] Meera Saucedo [place] - [facility] 4 16:44:51 Social History Question Answer Notes LastModified by Organizat ion Details LastModified Time Tobacco Smoking Status Never Smoker Not Available [facility] 05/31/2020 03:13:30 Able To Swim? Yes [email or web address] Information not available 01/28/2017 Do You Have An Advance Directive? No [id number] Information not available 05/31/2020 Do You Wear A Helmet When Biking? Yes [id number] Information not available 05/31/2020 Are You Blind Or Do You Have Difficulty Seeing? No [id number] Information not available 05/31/2020 What Is Your Level Of Caffeine Consumption? Occasional [id number] Information not available 05/31/2020 How Much Tobacco Do You Chew? None [id number] Information not available 05/31/2020 Are You Deaf Or Do You Have Serious Difficulty Hearing? No [id number] Information not available 05/31/2020 What Type Of Diet Are You Following? DIABETIC [id number] Information not available 05/31/2020 Which Illicit Or Recreational Drugs Have You Used? None [id number] Information not available 05/31/2020 Swimming/diving Yes [email or web address] Informati on not available 01/28/2017 Hard Of Hearing Or Deaf In One Or Both Ears? No [email or web address] Information not available 01/28/2017 Legally Blind In One Or Both Eyes? No [email or web address] Information not available 01/28/2017 What Was The Date Of Your Most Recent Tobacco Screening? 11/13/2024 Information not available 11/13/2024 Do You Use Protection During Sex? Always [id number] Information not available 05/31/2020 What Is Your Relationship Status? [id number] Information not available 05/31/2020 Seat Belts Used Routinely Yes [email or web address] Information not available 01/28/2017 Are You Sexually Active? Yes [id number] Information not available 05/31/2020 Smoke Alarm In Home Yes [email or web address] Information not available 01/28/2017 Are You Passively Exposed To Smoke? No [id number] Information not available 05/31/2020 How Much Tobacco Do You Smoke? No [id number] Information not available 05/31/2020 General Stress Level Low [email or web address] Information not available 01/28/2017 Do You Use Sunscreen Routinely? Yes [id number] Information not available 05/31/2020 Has Tobacco Cessation Counseling Been Provided? Yes Information not available 09/29/2023 On What Date Was Tobacco Cessation Counseling Provided? 11/13/2024 [email or web address] Answered No To The Tobacco Cessation Counseling Provided Question On 01/28/2017. Information not available 11/13/2024 How Many Years Have You Smoked Tobacco? 0 [id number] Information not available 05/31/2020 Do You Have Difficulty Walking Or Climbing Stairs? No [id number] Information not available 05/31/2020 Sex: Female Functional Status Question Answer Note LastModified by Organizat ion Details LastModified Time Do you use any illicit or recreational drugs? No Information not available 09/29/2023 Do you or have you ever used any other forms of tobacco or nicotine? No Information not available 09/29/2023 What is your level of alcohol consumption? None [id number] Information not available 05/31/2020 Are you able to walk? YESWOREST [id number] Information not available 05/31/2020 Do you have difficulty doing errands alone? No [id number] Information not available 05/31/2020 Are you able to care for yourself? Yes [id number] Information n ot available 05/31/2020 Do you have difficulty dressing or bathing? No [id number] Information not available 05/31/2020 What is your exercise level? Occasional [id number] Information not available 05/31/2020 Mental Status Question Answer Note LastModified by Organization D etails LastModified Time Do you have difficulty concentrating, remembering or making decisions? No [id number] Information no t available 05/31/2020 Family History Relationship Description Onset Age of this Age Resolved Age Notes LastModified by Organization Details LastModified Time Unspecified Relation Family history of malignant neoplasm [email or web address] Not available 2015 16:39:12 Unspecified Relation Myocardial infarction [email or web address] Not available 06/17 16:41:12 Father Diabetes mellitus [email or web address] Not available 2015 16:39:40 Father Neoplasm of liver [email or web address] Not available 2015 16:40:49 Sister Diabetes mellitus [email or web address] Not available 2015 16:39:40 Maternal Uncle Transplantat ion of heart [email or web address] Not available 09/2015 16:40:10 Paternal Aunt Hyperthyroid ism [email or web address] Not available 2015 16:40:30 Medical History Condition Response Pancreatitis N Coronary Artery Disease N Other N Gout N Atrial Fibrillation N congenital heart disease N Blood Diseases N Kidney Stones N Hyperthyroidism N Blood Transfusion N Rheumatoid arthritis N Erectile Dysfunction N amputation N Skin Lesions N COPD N Depression N Pneumonia N Incontinence N Murmur N Edema N Alzheimer's Disease N Migraine Headaches N Tobacco Abuse N Anxiety Disorder Y Hemorrhoids N Muscle, Joint, or Bone Problems N Obesity N Vision or Eye Problems N Arthritis N Restless Leg Syndrome N Polyps N Infertility N Mental Disorder N Carpal Tunnel N Acid Reflux (GERD) Y Cancer N Varicosities N Stroke N Tendonitis N Crohn's Disease N Hypercholesterolemia N Skin Cancer N Headaches N Fibromyalgia N Anal Fissure N Irritable Bowel Syndrome N Kidney Disease N Heart Problems N Ear or Hearing Problems N Hospitalizations N Gallstones N Kidney or Bladder Problems N Goiter N Acne N Skin Problems N Eating Disorder N Martin's Esophagus N Hypertriglyceridemia N MRSA exposure N Constipation N Embolism N Vitamin B12 Deficiency N Deviated Septum N Tuberculosis N AIDS/HIV N Myocardial Infarction N Asthma N Mitral Valve Disorders N Vertigo N Hepatitis N Thyroid Cancer N Neuropathy N Pulmonary Embolism N History of DVT N Herniated Disc N Chronic Ear Infections N Chicken Pox N Autism Spectrum Disorder (ASD) N Von Willebrands Disease N Thrombophilias N Breast Cancer N Hernia N Plantar Fasciitis N Hospital Admission Other Than N Hypothyroidism N Lung Disease N Defects or Inherited Disease N Developmental or Behavioral Disorders N Breast Problem N Difficulty Swallowing N Ovarian Cyst N Anesthesia Complications N Testosterone Deficiency N Meniere's disease N Head Injury/Concussion N Interstitial Cystitis N Congenital Anomalies N Hypoglycemia N Blood clot N Vitamin D Deficiency N Cellulitis N Endometriosis N Fracture N Bladder or Kidney Problems N Liver Disease N Panic Disorder N Schizophrenia N Concussion N Spina Bifida N Allergies/Hayfever N Osteoarthritis N Parkinson's Disease N Disc Protrusion N STI N Esophagitis N Angina N Thyroid Problems N GI Problems N ADD/ADHD N Anemia Y Multiple Sclerosis N Abnormal PAP N Lumbago N Mental Illness N Psychiatric Illness N Diabetes N Ovarian Cancer N Bedwetting N Degenerative Disc Disease N Seizures/Epilepsy N Congestive Heart Failure (CHF) N Hyperlipidemia Y Syncope N Insomnia N Eczema N Abuse/Domestic Violence N Attention Deficient Disorder N Diverticulitis N Dementia N Ulcerative colitis N Cerebrovascular Disease N Depression N Guillain-[place] N Sleep Apnea N Aneurysm N Bronchitis N Heart Disease N Suicidal Ideation N Pre-Eclampsia N Hypertension Y Osteoporosis N Gynecological History Statement/Question Response Menses Monthly N Obstetrics History GPAL:G 0 P 0 0 0 0 Immunizations Vaccine Type Date Status Note Provider Nam e and Address Organization Details Recorded Time Hep B, adolescent or pediatric 6 completed Not Available formerly [facility] 09/29/2023 17:04:26 Tdap 6 completed Not Available formerly [facility] 09/29/2023 17:04:26 zoster recombinant [address] [facility] 02/01/2023 16:25:59 zoster recombinant [address] [facility] 09/22/2023 11:54:42 Past Encounters Encounter ID Performer Location Encounter Start Date Encounter Closed Date Diagnosis/Indication Diagnosis SNOMED-CT Code Diagnosis ICD10 Code Diagnosis Note [id number] MARIELOS [place] [facility] [address] [facility] [place] [address] 08/24/2016 09:17:48 08/24/2016 10:56:06 Peripheral arterial occlusive disease 394802684 I73.9 Dysphagia 53005536 R13.1 0 Acute bronchitis 2800739 2 J20.9 Bronchitis 93486028 J40 Heel pain 7235407 M79.67 2 Hyperlipidemia 42254046 E78.5 [id number] MARIELOS [place] [facility] [address] [address] 10/19/2016 09:53:47 10/19/2016 12:06:01 Dyspnea 666207900 R06.00 Disorder o f gallbladder 77384782 K82.9 Acute bronchitis 2239606 2 J20.9 [id number] Kaitlin Franks APRN [place] [address] [address] [place], [place] [address] 11/02/2016 11:01:17 11/02/2016 11:51:12 Obstructive sleep apnea syndrome 65216206 G47.33 Chronic ob structive pulmonary disease 02566530 J44.9 [id number] Kaitlin Franks APRN [place] [address] [address] [place], [place] [address] 12/21/2016 10:34:55 12/21/2016 12:47:47 Gastroesophageal reflux disease 962881022 K21.9 Hypertensive disorder 38 699333 I10 Hypothyroidism 03416499 E03.9 [id number] Kaitlin Franks APRN [place] [address] [address] [place], [place] [address] 01/28/2017 15:45:37 01/28/2017 17:28:58 Acute bronchitis 86631425 J20.9 Chronic ob structive pulmonary disease 00343213 J44.9 [id number] Kaitlin Franks APRN [place] [address] [address] [place], [place] [address] 02/02/2017 14:11:12 02/02/2017 15:04:56 Body mass index 30+ - obesity 531239458 Z68.36 Pain in lower limb 66692 006 M79.669 Pulmonary embolism 60355 003 I26.99 [id number] Kaitlin Franks APRN [place] [address] [address] [place], [place] [address] 02/19/2017 13:53:47 02/19/2017 15:06:15 Pulmonary embolism 00671121 I26.99 Pain in upper limb 26296 6003 R22.31 Pain in left arm 2217577 00 M79.830 [id number] Kaitlin Franks APRN [place] [address] [address] [place], [place] [address] 03/09/2017 11:03:47 03/09/2017 12:28:06 Claudication 895575265 I73.9 Pulmonary embolism 97464 003 I26.99 Chronic ob structive pulmonary disease 42673521 J44.9 History of pulmonary embolus 207358178 Z86.155 [id number] Kaitlin Franks APRN [place] [facility] [address] [place], [place] [address] 03/19/2017 08:40:48 03/19/2017 09:16:17 Bronchitis 22034429 J40 [id number] Kaitlin Franks APRN [place] [facility] [address] [place] [address] 04/13/2017 08:41:09 04/13/2017 10:43:55 Severe chronic obstructive pulmonary disease 052931755 J44.9 Acute exac erbation of chronic obstructive pulmonary disease 820013497 J44.1 Hyperlipidemia 40290223 E78.5 Hypothyroidism 26884415 E03.9 Peripheral vascular disease 442680799 I73.9 [id number] Kaitlin Franks APRN [place] [facility] [address] [place], [place] [address] 04/15/2017 16:37:02 04/15/2017 17:23:22 Claudication 030309960 I73.9 [id number] Kaitlin Franks APRN [place] [facility] [address] [place] [address] 05/07/2017 12:21:03 05/07/2017 13:21:25 Peripheral vascular disease 605454252 I73.9 [id number] Kaitlin Franks APRN [place] [facility] [address] [place] [address] 08/24/2017 10:49:50 08/24/2017 13:50:39 Body mass index 30+ - obesity 634316215 Z68.39 Migraine 17289984 G43.00 9 Serum crea tinine above reference range 545322912 R79.89 Claudication 508500963 I 73.9 Upper resp iratory infection 45320751 J06.9 Renewal of prescription 441924221 Z76.0 Nausea 833904442 R11.0 [id number] Kaitlin Franks APRN [place] [facility] [address] [place], [place] [address] 03/03/2018 12:26:35 03/03/2018 14:56:19 Hypothyroidism 30046753 E03.9 Chronic ob structive pulmonary disease 66810177 J44.9 Hyperlipid emia screening 267630878 Z13.220 Hyperlipidemia 01286393 E78.5 Essential hypertension 49130543 I10 [id number] Kaitlin Franks APRN [place] [facility] [address] [place], [place] [address] 03/14/2018 14:28:42 03/14/2018 16:19:48 Renewal of prescription 969256900 Z76.0 Chronic ob structive pulmonary disease 49926377 J44.9 Claudication 884800566 I 73.9 Long-term drug therapy 757768925 Z79.432 [id number] Kaitlin Franks APRN [place] [address] [address] [place], [place] [address] 06/07/2018 14:49:55 06/07/2018 15:55:17 Screening for osteoporosis 681767139 Z13.820 Foreign body of foot 281 620199 S99.822A Chronic ob structive pulmonary disease 00766648 J44.9 Chronic back pain 455377 002 G89.29 Acute bronchitis 3087968 2 J20.9 Disorder of bone 3954582 3 M89.9 [id number] Kaitlin Franks APRN [place] [address] [address] [place] [id number] 06/20/2018 11:17:33 06/20/2018 12:46:17 Long-term drug therapy 286396186 Z79.899 Hypothyroidism 10994811 E03.9 Claudication 766045281 I 73.9 Anxiety 82255229 F41.9 [id number] Kaitlin Franks APRN [place] [address] [address] [place], [place] [address] 07/26/2018 10:59:19 07/26/2018 12:02:00 Chronic back pain 193103907 G89.29 Acid reflux 596295246 K2 1.9 Acute bronchitis 3645514 2 J20.9 [id number] [facility] [address] [place] [address] 09/26/2018 14:01:42 09/26/2018 15:55:29 Chronic obstructive pulmonary disease 49110648 J44.9 Hypothyroidism 42584343 E03.9 Acid reflux 938217080 K2 1.9 Pain of hip region 13054 002 M25.559 Hypertensive disorder 38 444100 I10 Pain of joint 21102655 M 25.50 Pain of mu ltiple joints 43866755 M25.50 Bronchitis 39995712 J40 Acute bronchitis 7886662 2 J20.9 [id number] Kaitlin Franks APRN [facility] [address] [place] [address] 01/12/2019 11:36:28 01/12/2019 12:20:58 Hypothyroidism 97323449 E03.9 Acid reflux 880832844 K2 1.9 Renewal of prescription 293054038 Z76.0 Long-term drug therapy 500677689 Z79.721 [id number] Kaitlin Franks APRN [facility] [address] [place] [address] 01/26/2019 11:30:59 01/26/2019 12:10:14 Claudication 362804963 I73.9 [id number] Kaitlin Franks APRN [facility] [address] [place] [place] [address] 04/04/2019 11:13:13 04/04/2019 12:04:54 Fracture of patella 34174801 S82.001A Renewal of prescription 453513969 Z76.0 Chronic ob structive pulmonary disease 72025689 J44.9 Acid reflux 475700835 K2 1.9 Bronchitis 63696575 J40 [id number] Che Joseph APRN [facility] [address] [place] [address] 08/24/2019 14:18:53 08/24/2019 17:06:34 Acid reflux 690205836 K21.9 Chronic ob structive pulmonary disease 91660688 J44.9 Anxiety 30580291 F41.9 Pulmonary embolism 14084 003 I26.99 Upper resp iratory infection 56702338 J06.9 Claudication 651140635 I 73.9 [id number] Samra Darby [address] [place] [address] 09/22/2019 16:35:40 09/22/2019 17:31:41 Gastroesophageal reflux disease 903958205 K21.9 Hypertensive disorder 38 593368 I10 Hypothyroidism 69437569 E03.9 Anxiety 55867313 F41.9 Hyperlipidemia 67748496 E78.5 Chronic ob structive pulmonary disease 63604941 J44.9 Chronic back pain 147945 002 M54.16 Peripheral arterial occlusive disease 526432782 I73.9 Pulmonary embolism 99169 003 I26.99 [id number] Samra Darby [address] [place] [address] 04/05/2020 16:15:11 04/05/2020 17:05:53 Suspected COVID-19 130321862 Z03.818 Exposure t o coronavirus infection 151598278 Z20.828 Cough 15684270 R05 [id number] MARIELOS Colunga [facility] [address] [place] [address] 05/07/2020 11:40:39 05/07/2020 12:46:48 Hypothyroidism 35828621 E03.9 will send new script pending tsh results Acute bronchitis 5363671 2 J20.9 [id number] Maureen Davila [employer] [address] [place] [address] 07/03/2020 09:57:08 07/03/2020 10:46:32 New daily persistent headache 1100608158 83630 G44.52 Tachycardia 2579451 R00. 0 Anxiety 78346928 F41.9 Pulmonary embolism 13179 003 I26.99 [id number] MARIELOS Colungab [facility] [address] JUAN [place] [facility] [place] [address] 10/15/2020 13:37:24 10/15/2020 14:55:48 Hypothyroidism 19506039 E03.9 will send new script pending tsh results Abscess 370554382 L02.91 [id number] Samra Darby [address] [place] [address] 10/29/2020 13:07:52 10/29/2020 15:02:30 [id number] Samra Darby [address] [place] [place] [address] 11/05/2020 11:42:31 11/05/2020 12:48:12 Chronic back pain 401918076 M54.16 Anxiety 24051451 F41.9 Renewal of prescription 193773650 Z76.0 Hypothyroidism 97135000 E03.9 Chronic ob structive pulmonary disease 43445805 J44.9 Gastroesop hageal reflux disease 490301499 K21.9 Hypertensive disorder 38 681333 I10 Anemia 350501910 D64.9 Peripheral arterial occlusive disease 335427881 I73.9 Hyperlipidemia 25815649 E78.5 Pulmonary embolism 38151 003 I26.99 [id number] Samra Darby [address] [place] [address] 11/11/2020 14:41:48 11/11/2020 15:18:06 Chronic back pain 066084086 M54.16 Chronic ob structive pulmonary disease 43669865 J44.9 Gastroesop hageal reflux disease 996054346 K21.9 Hypertensive disorder 38 380134 I10 Hypothyroidism 27147041 E03.9 Anxiety 38852385 F41.9 Hyperlipidemia 69488650 E78.5 Pulmonary embolism 26371 003 I26.99 Renewal of prescription 278928160 Z76.0 [id number] MARIELOS [place] [facility] [address] [facility] [place] [facility] [place] [address] 02/11/2021 10:43:13 02/11/2021 11:19:36 Pain of right wrist 3352965146 56899 M25.531 acute, requests ibuprofen Long-term current use of steroid 779800517 Z79.52 last DEXA in 2018 [id number] Che Joseph, [address] [place] [address] 09/15/2021 11:09:58 09/15/2021 13:00:37 Viral screening 811222629 Z11.52 COVID-19 018230744 U07.1 Chronic ob structive pulmonary disease 03911654 J44.9 [id number] Misty Stoutie, [address] [place] [address] 08/17/2023 15:46:30 08/17/2023 17:23:29 Viral screening 125863233 Z11.59 Influenza caused by Influenza B virus 24270643 J10.1 Cough 44518886 R05.9 [id number] Honorio Love PA-C [address] [place] [address] 09/22/2023 11:36:51 09/22/2023 12:36:26 Paresthesia of upper limb 10159830 R20.2 obtain labs from urgent care visit, recent (yesterday ) workup for same complaint. Normally seeing Neus. EKG without acute concerns. consider EMG vs additional labs. Possible compressiv e neuropathy . Patient ne w to provider [id number] 69884 Z76.89 [id number] Yolanda David, [address] [place] [address] 09/29/2023 17:04:01 09/29/2023 18:00:55 Body mass index 40+ - severely obese 528836726 Z68.41 Morbid obesity 552919737 E66.01 Edema 219038637 R60.9 Essential hypertension 13649062 I10 Renewal of prescription 754499718 Z76.0 Gastroesop hageal reflux disease 620654542 K21.00 Hypothyroidism 55999825 E03.9 Hyperlipidemia 63817300 E78.5 Noncomplia nce with medication regimen 937769100 Z91.174 [id number] Yolanda David [address] [place] [address] 10/18/2023 09:53:03 10/18/2023 10:55:42 Body mass index 40+ - severely obese 322245874 Z68.41 Morbid obesity 010320950 E66.01 Acute jona l insufficiency 034716179 N28.9 Essential hypertension 55025990 I10 Livedo reticularis 24078 2003 R23.1 [id number] Yolanda David [address] [place] [address] 03/30/2024 16:33:00 03/30/2024 17:34:49 Gastroesophageal reflux disease 800948071 K21.00 Hypertensive disorder 38 307064 I10 Hypothyroidism 20859818 E03.9 Hyperlipidemia 17387680 E78.5 Anxiety 34692950 F41.9 Essential hypertension 09875936 I10 Body mass index 40+ - severely obese 654954894 Z68.41 Morbid obesity 993591151 E66.01 Edema 931885094 R60.9 Renewal of prescription 398886111 Z76.0 Chronic ob structive pulmonary disease 00786970 J44.9 [id number] Yolanda David [address] [place] [address] 07/12/2024 14:55:58 07/12/2024 17:00:59 Paresthesia of upper limb 94856640 R20.2 Pt reports Vitamin D deficiency 347 06936 E55.9 [id number] Yolanda David [address] [place] [address] 10/19/2024 09:28:30 10/19/2024 10:24:15 Essential hypertension 83731326 I10 Morbid obesity 821532869 E66.01 [id number] Yolanda David [address] [place] [address] 11/13/2024 12:59:39 11/13/2024 14:18:43 Obesity 495266277 E66.9 Acute lowe r respiratory tract infection 238636188 J22 Osteopenia 724474856 M85 .80 Bone pain 63545444 M89.8 X9 Health Concerns Section Related Observation LastModified by Organization Detai ls LastModified Time None Recorded Concern Status LastModified by Organization Details LastModified Time None Recorded Advance Directives Directive N: Payers Insurance Date Sequence Insurance Name Policy Number Policy Vazquez Covered Member ID Vazquez Member ID Guarantor Name 10/19/2024 1 [place] [id number] Suzette A Cordon [id number] Suzette Cordon 10/15/2020 1 [employer] [place] [facility] - OPT-OUT (MEDICAID HMO) CSKY Suzette A Cordon [id number] Suzette Cordon 10/15/2020 1 [employer] [facility] (MEDICAID REPLACEMENT - HMO) CSKY Suzette A Cordon [id number] Suzette Cordon 10/15/2020 1 MEDICAID-[facility] - FFS/TRADITIONA L Suzette A Cordon [id number] Suzette Cordon 07/10/2024 1 [facility] ([facility]ICA[facility]PLAC[facility] - HMO) Suzette Cordon [id number] Suzette Cordon 01/09/2025 1 [employer] [facility] (MEDICAID REPLACEMENT - HMO) Suzette Cordon [id number] Suzette Cordon 10/19/2024 2 [facility] Suzette Cordon [id number] Suzette Cordon 11/17/2024 [place] Suzette A Cordon [id number] Suzette Cordon 08/17/2023 1 [place] [id number] Suzette A Cordon [id number] Suzette Cordon 09/15/2021 1 MEDICA[facility] - FFS/TRADITIONA L Suzette Cordon [id number] Suzette Cordon 09/15/2021 1 [employer] [facility] (MEDICAID REPLACEMENT - HMO) Suzette Cordon [id number] Suzette Cordon Notes Date Note Type Note Provider Name and Address Organization Details Recorded Time 4 text/html Emergency Department Follow-Up RecordReported bypatient.Notes:Reviewed hospital notes and testing with patient Recent admission to [facility] for GAURAV, dyspnea, Antithrombin III deficiency, chronic respiratory failure with hypoxia, PAD, essential hypertension, acquired hypothyroidism No chest pain, shortness of breath, dizziness, lightheadedness, syncope, palpitations or edema. No fever, chills or cough.Reports compliance with medications - currently taking 175 mcg LevothyroxineDenies alcohol, tobacco and illicit drug usage Yolanda David APRN [address], [place], [address], [place] - [facility] 10/18/2023 12:01:18 4 text/html Presents for follow up regarding HTN, GERD, HLD, hypothyroidismFeeling well.No chest pain, shortness of breath, dizziness, lightheadedness, syncope, palpitations or edema. No fever, chills or cough.Compliant with medicationsDenies tobacco, alcohol and illicit drug usage Yolanda David APRN [address], [place], [address], [employer] - [facility] 04/03/2024 18:03:21 4 text/html Presents via telemedicine for follow up regarding HTN, HLD, GERD, anxiety vitamin D deficiencyFeeling wellHaving issues of numbness to bilateral hands extending up into arms especially after falling to sleep, if hold cell phone for extended period or hold steering wheelCompliant with medicationsDenies any alcohol, tobacco and illicit drug usage Yolanda David APRN [address], [place], [address], [place] - [facility] 07/12/2024 18:14:52 5 text/html Presents for telemedicine for follow up regarding HTN, GERD, COPDFeeling wellAsking about WegovyNo chest pain, shortness of breath, dizziness, lightheadedness, syncope, palpitations or edema. No fever, chills or cough.Seen in urgent care yesterday for cold symptoms - currently on antibiotic seriesCompliant with medicationsDenies alcohol, tobacco and illicit drugs usage Yolanda David APRN [address], [place], [address], [place] [facility] 01/02/2025 13:10:22 5 text/html Patient in with cough and congestion with a few aches , per patient symptoms x 2 weeks. Presents with concerns regarding bone painRequesting dexa and PET ScanIs now following with rheumatologyDoes endorse productive productive - green, fatigue, sore throat, body aches, H/ANo fever, chills, ear pain or pressure, nasal drainage, N/V/DHas been taking mucinex and sinus medication OTCCompliant with medicationsDenies alcohol, tobacco and illicit drug usage Yolanda David APRN [address], [place], [address], [facility] - [facility] 11/13/2024 13:45:29 OBGyn Episode No OBEpisode recorded.
--- OUTSIDE RECORDS SUMMARY | 2025-01-24 08:14 | XMS_ITS | Clinical Summary ---
Author Organization [facility] [place] [address] Address [address] [place] [address] Care Team Providers Care Strategic Business Development Name Role Phone Reji Rincon MD Unavailable [phone] Anayeli Lyle MD Primary Care Provider [phone] Allergies Active Allergy Reactions Criticality Noted Date Comments Penicillins Swelling 02/01/2017 Medications clopidogrel (PLAVIX) 75 mg Oral TabletIndications: Encounter to establish care,PAD (peripheral artery disease),Essential hypertension,Famil y history of early CAD,Acquired hypothyroidism,Bon e spur,Morbid obesity due to excess calories (HCC),Pain in both lower extremities Take 75 mg by mouth daily. Active ranitidine (ZANTAC) 150 mg Oral TabletIndications: Encounter to establish care,PAD (peripheral artery disease),Essential hypertension,Famil y history of early CAD,Acquired hypothyroidism,Bon e spur,Morbid obesity due to excess calories (HCC),Pain in both lower extremities Take 150 mg by mouth 2 times daily. Active ALPRAZolam (XANAX) 0.5 mg Oral TabletIndications: Encounter to establish care,PAD (peripheral artery disease),Essential hypertension,Famil y history of early CAD,Acquired hypothyroidism,Bon e spur,Morbid obesity due to excess calories (HCC),Pain in both lower extremities Take by mouth 3 times daily. Active venlafaxine (EFFEXOR-XR) 75 mg Oral Capsule, Sust. Release 24 hrIndications:Enco unter to establish care,PAD (peripheral artery disease),Essential hypertension,Famil y history of early CAD,Acquired hypothyroidism,Bon e spur,Morbid obesity due to excess calories (HCC),Pain in both lower extremities Take 75 mg by mouth daily. Reported on 02/01/2017 Active fluticasone (FLONASE ALLERGY RELIEF) 50 mcg/actuation Nasl [place], SuspensionIndicati ons:Encounter to establish care,PAD (peripheral artery disease),Essential hypertension,Famil y history of early CAD,Acquired hypothyroidism,Bon e spur,Morbid obesity due to excess calories (HCC),Pain in both lower extremities 2 Sprays by Nasal route daily. Active cyclobenzaprine (FLEXERIL) 10 mg Oral TabletIndications: Encounter to establish care,PAD (peripheral artery disease),Essential hypertension,Famil y history of early CAD,Acquired hypothyroidism,Bon e spur,Morbid obesity due to excess calories (HCC),Pain in both lower extremities Take 10 mg by mouth 2 times daily. Active albuterol sulfate 90 mcg/actuation Inhl Aerosol Powdr Breath ActivatedIndicatio ns:Morbid obesity due to excess calories (HCC),Bronchospasm Inhale 180 mcg into the lungs every 4 hours. 1 Each 4 12/08/19 17 Active enoxaparin (LOVENOX) SubQ Syringe 100 mg/1 mL Subcutaneous (Inject under the skin) 100 mg every 12 hours. Active gabapentin (NEURONTIN) 100 mg Oral CapsuleIndications :Encounter to establish care,PAD (peripheral artery disease),Essential hypertension,Famil y history of early CAD,Acquired hypothyroidism,Bon e spur,Morbid obesity due to excess calories (HCC),Pain in both lower extremities Take 1 Capsule by mouth 3 times daily. 90 Capsule 5 10/08/19 24 Active LEVOthyroxine (SYNTHROID) 175 mcg Oral TabletIndications: Encounter to establish care,PAD (peripheral artery disease),Essential hypertension,Famil y history of early CAD,Acquired hypothyroidism,Bon e spur,Morbid obesity due to excess calories (HCC),Pain in both lower extremities Take 1 Tablet by mouth daily. 90 Tablet 1 10/08/19 24 Active fUROsemide (LASIX) 20 mg Oral Tablet Take 1 Tablet by mouth daily. 30 Tablet 3 10/28/19 24 Active aspirin 81 mg Oral Tablet, Delayed Release (E.C.) Take 81 mg by mouth daily. Active atorvastatin (LIPITOR) 40 mg Oral TabletIndications: Mixed hyperlipidemia Take 1 Tablet by mouth daily. 90 Tablet 11/25/19 24 Active Active Problems Problem Noted Date Diagnosed Date Anxiety and depression 11/08/2023 Overview (11/08/2023): On Effexor. JUANA on CPAP 11/08/2023 Stage 3a chronic kidney disease 11/01/2023 Assessment & Plan (11/01/2023 1:57 PM EDT): Secondary to hypertensive nephrosclerosis Renal US results unremarkable, no obstruction UPC ratio 0.08 gm/gm She is on Diovan, states will fax over her updated medication list Start Lasix 20 mg daily for volume control Counseled on limiting fluid intake to not more than 60-65 ounces/d Counseled on low salt diet, weight loss and exercise Dyspnea, unspecified type 10/06/2023 Vocal cord paralysis 06/10/2017 Antithrombin III deficiency 06/10/2017 Overview (11/08/2023): Was on xeralto in the past and had recurrent DVT/PE 2019 Stable on lovenox shots Chronic respiratory failure with hypoxia 017 Encounter to establish care 10/12/2016 PAD (peripheral artery disease) 10/12/2016 Overview (10/12/2016): Reported Assessment & Plan (11/08/2023 11:58 AM EDT): On plavix, zocor. Wants ref to cardiology. Currently seeing a show host or hostess at [facility] Essential hypertension 10/12/2016 Assessment & Plan (11/08/2023 12:04 PM EDT): On Assessment & Plan (11/01/2023 1:56 PM EDT): States she has an updated list of medications, she takes Diovan She states she will fax her medication list after the appointment today, fax number provided Family history of early CAD 10/12/2016 Overview (11/08/2023): Father NV 47 CTCA 09/2023 neg for significant coronary lesion. Assessment & Plan (11/08/2023 11:57 AM EDT): Acquired hypothyroidism 10/12/2016 Morbid obesity due to excess calories 10/12/2016 Assessment & Plan (11/01/2023 1:58 PM EDT): Counseled on low salt, low fat diet Counseled on exercise and weight loss for better BP control Pain in both lower extremities 10/12/2016 HLD (hyperlipidemia) 10/12/2016 Resolved Problems Problem Noted Date Diagnosed Date Resolved Date GAURAV (acute kidney injury) 10/07/2023 Acute pulmonary embolism 03/02/2017 Bronchospasm 12/07/2016 11/08/2023 Bone spur 10/12/2016 11/08/2023 Encounters Date Type Department Care Team Description 11/28/2024 Telephone [facility] [address] [place] [address] Rosie Carr MA Referral 11/03/2024 Telephone [facility] [place] [address] Lupe Sullivan MD Schedule Appointment 11/02/2024 11:45 AM EDT Office Visit [facility] [address] [place] [address] Lupe Sullivan MD Primary osteoarthritis involving multiple joints (Primary Dx); Polyarthralgia; PAD (peripheral artery disease) (HCC); Chronic respiratory failure with hypoxia (HCC); Morbid obesity due to excess calories (HCC); Antithrombin III deficiency (HCC); Stage 3a chronic kidney disease (HCC) Discharge Disposition: Home or Self Care from Last 3 Months Surgical History Surgery Date Site/Laterality Comments CHOLECYSTECTOMY, LAPAROSCOPIC THYROIDECTOMY, PARTIAL ANGIOPLASTY Medical History Medical History Date Comments Hypertension PAD (peripheral artery disease) Thyroid disease Acute kidney injury Family History Medical History Relation Name Comments Lung Cancer Brother Ovarian Cancer Daughter Lung Cancer Father Cancer Mother Skin Cancer Son Relation Name Status Comments Brother Daughter Alive Father Mother Son Alive Social History Tobacco Use Types Packs/Day Years Used Date Smoking Tobacco: Never Alcohol Use Standard Drinks/Week Comments No 0 (1 standard drink = 0.6 oz pur e alcohol) [facility] Utilities Answer Date Recorded In the past 12 months has th e electric, gas, oil, or water company threatened to shut off services in your home? No 10/07/2023 Overall Financial Resource Strain (CARDIA) Answe r Date Recorded How hard is it for you to pa y for the very basics like food, housing, medical care, and heating? Not hard at all 10/07/2023 PHQ-2 Answer Date Recorded PHQ-2 Total Score 0 10/07/2023 [facility] ional [facility] - Occupational Stress Questionnaire Answer Date Recorded Do you feel stress - tense, restless, nervous, or anxious, or unable to sleep at night because your mind is troubled all the time - these days? Not at all 10/07/2023 Exercise Vital Sign Answer Date Recorde d On average, how many days pe r week do you engage in moderate to strenuous exercise (like a brisk walk)? 0 days 10/07/2023 On average, how many minutes do you engage in exercise at this level? 0 min 10/07/2023 Hunger Vital Sign Answer Date Recorded Within the past 12 months, y ou worried that your food would run out before you got the money to buy more. Never true 10/07/19 24 Within the past 12 months, t he food you bought just didn't last and you didn't have money to get more. Never true 10/07/2023 [facility] IP Transportation Answer D ate Recorded In the past 12 months, has l ack of reliable transportation kept you from medical appointments, meetings, work or from getting things needed for daily living? No 10/07/2023 Comments No Sex and Gender Information Value Date Recorded Sex Assigned at Not on file Legal Sex Female 9:02 AM EST Gender Identity Not on file Sexual Orientation Not on file Obstetrics History Last Filed Vital Signs Vital Sign Reading Time Taken Comments Blood Pressure 140/92 11/02/2024 12:01 PM EDT Pulse 92 11/02/2024 12:01 PM EDT Temperature 36.4 C (97.6 F) 10/08/2023 10:45 AM EST Respiratory Rate 23 11/02/2024 12:01 PM EDT Oxygen Saturation 95% 11/08/2023 11:43 AM EDT Inhaled Oxygen Concentration - - Weight 112.5 kg (248 lb) 11/02/2024 12:01 PM EDT Height 165.1 cm (5' 5 ) 11/08/2023 11:43 AM EDT Body Mass Index 41.27 11/08/2023 11:43 AM EDT Plan of Treatment Health Maintenance Due Date Last Done Comments Annual Wellness Exam 1974 Hepatitis B Vaccine (1 of 3 - 19+ 3-dose series) 1990 11/15/2015 Cervical Cancer Screening 01/18/1992 Pap Smear 01/18/1992 HPV/Pap Cotest 2001 Breast Cancer Screening 2011 Cologuard 01/18/2016 Colon Cancer Screening 01/18/2016 Colonoscopy 01/18/2016 FIT 01/18/2016 Sigmoidoscopy 01/18/2016 Virtual Colonography 01/18/2016 Pneumococcal Vaccine 50+ (1 of 1 - PCV) 2021 COVID-19 Vaccine ( - 2023-2 5 season) 2024 Influenza Vaccine (Season Ended) 2025 06/08/2017 (Declined) DTaP/TDaP/Td (2 - Td or Tdap) 11/14/2025 11/15/2015 Zoster Completed 02/01/2023, 10/27/2022 Meningococcal B Vaccine Aged Out No l onger eligible based on patient's age to complete this topic Goals Goal Patient Goal Type Associated Problems Recent Progress Patient-Stated? Author Blood Pressure < 140/90 Blood Pressure 140/92(2024 12:01 PM EDT) No Carol Rivera RMA Maintain a healthy diet, exercise regularly and maintain an ideal body weight [place] [address] [facility] BY [employer] PL[employer] BY [facility] Advance Directives For more information, please contact: [phone] * Full Code (Latest Code Status on File) Date Activated Date Inactivated Comments 10/07/2023 12:59 AM 10/08/2023 7:58 PM Care Teams Strategic Business Development Relationship Specialty Start Date End Date Anayeli Lyle MD [address] [place] [address] PCP - General Internal Medicine 11/08/23 Reji Rincon MD [address] [place] [address] [place] [address] Internal Medicine-Cardiovascular Disease 10/12/16
--- OUTSIDE RECORDS SUMMARY | 2025-01-24 08:14 | XMS_ITS | Encounter Summary ---
Author Organization [place] [address] Care Team Providers Care Web Offset Press Feeder Name Role Phone Reji Rincon MD Unavailable [phone] Anayeli Lyle MD Primary Care Provider [phone] Reason for Visit * Reason Onset Date Comments Referral 11/28/2024 Encounter Details Date Type Department Care Team (Late st Contact Info) Description 11/28/2024 Telephone [facility]P WE[facility]GT SARAH [address] [place] [address] Rosie Carr MA Referral Social History Tobacco Use Types Packs/Day Years Used Date Smoking Tobacco: Never Alcohol Use Standard Drinks/Week Comments No 0 (1 standard drink = 0.6 oz pur e alcohol) [facility] Utilities Answer Date Recorded In the past [...] Date Recorded PHQ-2 Total Score 0 10/07/2023 [place] [place] [facility]at ional Health - Occupational Stress [...] money to get more. Never true 10/07/2023 [facility] IP Transportation Answer D ate Recorded In [...] encounter Miscellaneous Notes * Telephone Encounter - Rosie Carr MA - 11/28/2024 9:00 AM EDT Called and left voicemail for pt regarding referral. Will send detailed EMBI message with instructions to complete referral process. documented in this encounter Plan of Treatment Not on file documented as of this encounter Goals Goal Patient Goal Type Associated Problems Recent Progress Patient-Stated? Author Blood Pressure < 140/90 Blood Pressure 140/92(2024 12:01 PM EDT) No Carol Rivera RMA Maintain a healthy diet, exercise regularly and maintain an ideal body weight General No Carol Rivera RMA documented as of this encounter Visit Diagnoses Not on filedocumented in this encounter Care Teams Web Offset Press Feeder Relationship Specialty Start Date End Date Anayeli Lyle MD [address] [place] [address] PCP - General Internal Medicine 11/08/23 Reji Rincon MD [address] [place] [address] [place] [address] Internal Medicine-Cardiovascular Disease 10/12/16 documented as of this encounter
== END 2025-01-22 23:59 | disposition home or self-care (01) ==
LOC: LAB.DROPOF 01-24 08:08
PROVIDERS: PCP Family Medicine; Visit Provider Family Medicine
DX: Z11.59 Encounter for screening for other viral diseases (principal); Z11.4 Encounter for screening for human immunodeficiency virus [HIV]; E78.2 Mixed hyperlipidemia; I10 Essential (primary) hypertension; R53.83 Other fatigue
CPT/HCPCS: 80053; 80061; 84436; 84443; 85025; 86803; 87389

== ENCOUNTER 2025-03-20 13:23 | Outpatient (CLI) | payer MEDICAID, SELFPAY ==
--- OUTSIDE RECORDS SUMMARY | 2025-03-20 13:26 | XMS_ITS | CCD ---
Author Name Interface, [id number] lity Address [address] [place], [place] [id number] [facility] Address [address] [place], [place] [id number] Reason for Visit Social History Date Name Value Sex Female
--- OUTSIDE RECORDS SUMMARY | 2025-03-20 13:26 | XMS_ITS | Encounter Summary ---
Author Organization [facility] Address [address] [place] [address] Care Team Providers Care Last Code Striper Name Role Phone Mirza Elliott PA-C Unavailable Kaleigh Ge APRN Primary Care Provider [phone] Gloria More MA Unavailable Unavailable Wanda Leyva RN Unavailable Unavailable Pratima Richey ROCK LATHER Unavailable Daisy Michelle MORTAR CARRIER Unavailable Unavailable Encounter Details Date Type Department Care Team (Late st Contact Info) Description 05/04/2020 Orders Only [facility] [address] [place] [address] Amada Mittal MD [address] [place], [place] [id number] Social History Tobacco Use Types Packs/Day Years [...] on filedocumented in this encounter Care Teams Last Code Striper Relationship Specialty Start Date End Date Kaleigh Franks APRN [address] [place] [phone] PCP - General FAMILY NURSE PRACTITIONER 03/16/18 Mirza Elliott PA-C Pulmonary Medicine 03/14/18 Gloria More MA 06/07/18 Wanda Leyva, RN 08/23/18 Pratima Richey NP [address] [facility] [place] [address] Pulmonary Disease 12/26/18 Daisy Michelle, MORTAR CARRIER Respiratory Therapist Respiratory Therapy 12/28/18 documented as of this encounter
--- OUTSIDE RECORDS SUMMARY | 2025-03-20 13:26 | XMS_ITS | Clinical Summary ---
Author Organization [facility] Address [facility] [place] [address] Care Team Providers Care Early Childhood Aide Classroom Name Role Phone PcpTita Primary Care Provider [phone] Source Comments This information has been disclosed [...] therelease of HIV test results or diagnoses. [id number] Social History Tobacco Use Types Packs/Day Years Used Date Smoking Tobacco: Never Assessed Comments Unknown Sex and Gender Information Value Date Recorded Sex Assigned at Not on file Legal Sex Female 3:16 PM EST Gender Identity Not on file Sexual Orientation Not on file Plan of Treatment Not on file Care Teams Early Childhood Aide Classroom Relationship Specialty Start Date End Date Tita Hu No Address PCP - General Pediatrics 09/24/16
--- OUTSIDE RECORDS SUMMARY | 2025-03-20 13:26 | XMS_ITS | Encounter Summary ---
Author Organization [facility] Address [address] [place] [address] Care Team Providers Care Roller Maker Name Role Phone Mirza Elliott PA-C Unavailable Kaleigh Ge APRN Primary Care Provider [phone] Gloria More MA Unavailable Unavailable Wanda Leyva RN Unavailable Unavailable Pratima Richey HEALTH SERVICES MANAGER Unavailable Daisy Michelle RRT Unavailable Unavailable Reason for Visit * Reason Onset Date Comments Other 08/29/2018 Encounter Details Date Type Department Care Team (Late st Contact Info) Description 08/29/[address] [phone] Gloria More MA Other Social [...] on filedocumented in this encounter Care Teams Roller Maker Relationship Specialty Start Date End Date Kaleigh Franks APRN [address] [facility] [place] [address] PCP - General FAMILY NURSE PRACTITIONER 03/16/18 Mirza Elliott PA-C Pulmonary Medicine 03/14/18 Gloria Moer MA 06/07/18 Wanda Leyva, RN 08/23/18 Pratima Richey NP [address] [facility] [place] [address] Pulmonary Disease 12/26/18 Daisy Michelle, MARKETING ASSISTANT Respiratory Therapist Respiratory Therapy 12/28/18 documented as of this encounter
--- OUTSIDE RECORDS SUMMARY | 2025-03-20 13:26 | XMS_ITS | Clinical Summary ---
Author Organization [facility] [place] [address] Address [address] [place] [address] Care Team Providers Care Plant Pathology Teacher Name Role Phone Reji Rincon MD Unavailable [phone] Anayeli Lyle MD Primary Care Provider [phone] Allergies Active Allergy Reactions Criticality Noted Date [...] fluticasone (FLONASE ALLERGY RELIEF) 50 mcg/actuation Nasl [place], SuspensionIndicati ons:Encounter to establish care,PAD (peripheral artery [...] Wants ref to cardiology. Currently seeing a oriental rug stretcher at [place] Essential hypertension 10/12/2016 Assessment & Plan (11/08/2023 12:04 PM EDT): On Assessment & Plan (11/01/2023 1:56 PM EDT): States she has an updated list of medications, she takes Diovan She states she will fax her medication list after the appointment today, fax number provided Family history of early CAD 10/12/2016 Overview (11/08/2023): Father [place] 47 CTCA 09/2023 neg for significant coronary [...] Bronchospasm 12/07/2016 11/08/2023 Bone spur 10/12/2016 11/08/2023 Surgical History Surgery Date Site/Laterality Comments CHOLECYSTECTOMY, [...] drink = 0.6 oz pur e alcohol) [facility] [place] Utilities Answer Date Recorded In the past 12 months has e electric, gas, oil, or water company threatened to shut off services in your home? No 10/07/2023 Overall Financial Resource Strain (CARDIA) Answe r Date Recorded How hard is it for you to pa y for the very basics like food, housing, medical care, and heating? Not hard at all 10/07/2023 PHQ-2 Answer Date Recorded PHQ-2 Total Score 0 10/07/2023 [facility] [place] [facility] - Occupational Stress [...] money to get more. Never true 10/07/2023 [facility] [place] [facility] IP Transportation Answer D ate Recorded [...] of 1 - PCV) 2021 COVID-19 Vaccine (2023-2 5 season) 2024 Influenza Vaccine (#1) 2025 7 (Declined) DTaP/TDaP/Td (2 - Td or Tdap) [...] weight General No Carol Rivera RMA Insurance PLAN BY [employer] PLAN BY [employer] Advance Directives For more information, please contact: [phone] * Full Code (Latest Code Status on File) Date Activated Date Inactivated Comments 10/07/2023 12:59 AM 10/08/2023 7:58 PM Care Teams Plant Pathology Teacher Relationship Specialty Start Date End Date Anayeli Lyle MD [address] [place] [address] PCP - General Internal Medicine 11/08/23 Reji Rincon MD [address] [place] [address] [place] [id number] Internal Medicine-Cardiovascular Disease 10/12/16
--- OUTSIDE RECORDS SUMMARY | 2025-03-20 13:26 | XMS_ITS | CCD ---
Author Name Interface, [email or web address] Address [address] [place], [place] [id number] [facility] Address [address] [place], [place] [id number] Reason for Visit Social History Date Name Value Sex Female
--- OUTSIDE RECORDS SUMMARY | 2025-03-20 13:26 | XMS_ITS | Encounter Summary ---
Author Organization [facility] Address [address] [place] [address] Care Team Providers Care Career Agent Name Role Phone Mirza Elliott PA-C Unavailable UnaKaleigh Sheets APRN Primary Care Provider [phone] Gloria More MA Unavailable Unavailable Wanda Leyva RN Unavailable Unavailable Pratima Richey NP Unavailable Daisy Michelle RRT Unavailable Unavailable Encounter Details Date Type Department Care Team (Late st Contact Info) Description 12/04/2024 Orders Only [facility] [address] [place] [address] [place] [address] Kaleigh Franks APRN [address] [place] [phone] Social History Tobacco Use Types Packs/Day [...] on filedocumented in this encounter Care Teams Career Agent Relationship Specialty Start Date End Date Kaleigh Franks APRN [address] [place] [phone] PCP - General FAMILY NURSE PRACTITIONER 03/16/18 Mirza Elliott PA-C Pulmonary Medicine 03/14/18 Gloria More MA 06/07/18 Wanda Leyva, RN 08/23/18 Pratima Richey NP [address] [facility] [place] [address] Pulmonary Disease 12/26/18 Daisy Michelle, NEWS COMMENTATOR Respiratory Therapist Respiratory Therapy 12/28/18 documented as of this encounter
--- OUTSIDE RECORDS SUMMARY | 2025-03-20 13:26 | XMS_ITS | Encounter Summary ---
Author Organization [facility] Address [address] [place] [address] Care Team Providers Care Data Storage Specialist Name Role Phone Mirza Elliott PA-C Unavailable Kaleigh Ge APRN Primary Care Provider [phone] Gloria More MA Unavailable Unavailable Wanda Leyva RN Unavailable Unavailable Pratima Richey NP Unavailable Daisy Michelle LONGITUDINAL FLOAT OPERATOR Unavailable Unavailable Reason for Visit * Reason Onset Date Comments Schedule Procedure 12/28/2018 Encounter Details Date Type Department Care Team (Late st Contact Info) Description 12/28/[address] [address] Daisy Michelle, CHEVY Schedule Procedure [...] EDT If she can do echocardiogram at [facility], it would be best as there is a PA process that we cannot complete when it is at an outside facility. She can do this at [facility] if it is easier for her and closer. Thanks! documented in this encounter Plan of Treatment Not on file documented as of this encounter Visit Diagnoses Not on filedocumented in this encounter Care Teams Data Storage Specialist Relationship Specialty Start Date End Date Kaleigh Franks APRN [address] [place] [phone] PCP - General FAMILY NURSE PRACTITIONER 03/16/18 Mirza Elliott PA-C Pulmonary Medicine 03/14/18 Gloria More MA 06/07/18 Wanda Leyva, RN 08/23/18 Pratmia Richey NP [address] [facility] [place] [id number] Pulmonary Disease 12/26/18 Daisy Michelle, LONGITUDINAL FLOAT OPERATOR Respiratory Therapist Respiratory Therapy 12/28/18 documented as of this encounter
--- OUTSIDE RECORDS SUMMARY | 2025-03-20 13:26 | XMS_ITS | Clinical Summary ---
Author Organization [facility] Address [address] [place] [address] Care Team Providers Care Interface Engineer Name Role Phone Mirza Elliott PA-C Unavailable Kaleigh Ge APRN Primary Care Provider [phone] Gloria More MA Unavailable Unavailable Wanda Leyva [...] Active Active Problems No known active problems Family History Medical History Relation Name Comments [...] (Shingrix) (1 of 2) 2021 INFLUENZA VACCINE (#1) 2025 HEP A VACCINE Aged Out No longer elig ible based on patient's age to complete this topic HIB VACCINE Aged Out No longer eligi ble based on patient's age to complete this topic ROTOVIRUS VACCINE Aged Out No longer eligible based on patient's age to complete this topic Care Teams Interface Engineer Relationship Specialty Start Date End Date Kaleigh Franks APRN [address] [place] [phone] PCP - General FAMILY NURSE PRACTITIONER 03/16/18 Mirza Elliott PA-C Pulmonary Medicine 03/14/18 Gloria More MA 06/07/18 Wanda Leyva, RN 08/23/18 Pratima Richey, MIA [address] [facility] [employer] [facility] [address] [place] [phone] Pulmonary Disease 12/26/18 Daisy Michelle, WHEEL FILLER Respiratory Therapist Respiratory Therapy 12/28/18
--- NOTE | 2025-03-20 13:30 | CT_ITS ---
FINAL REPORT TECHNIQUE: Postcontrast axial images of the chest were performed in a CTA protocol. This study was performed with techniques to keep radiation doses as low as reasonably achievable, (ALARA). Individualized dose reduction technique using automated exposure control or adjustment of mA and/or kV according to the patient's size were employed. CLINICAL HISTORY: Dyspnea FINDINGS: The heart is normal in size. No adenopathy is identified. No pleural or pericardial effusion is identified. The thoracic aorta is normal in caliber with no focal aneurysm or dissection identified. There is no filling defect to suggest pulmonary embolism. No lung infiltrate or mass is identified. Mild dependent edema is seen at the lung bases. The images of the upper abdomen demonstrate postoperative changes of cholecystectomy. IMPRESSION: No evidence for PE on this exam. Reviewed, Interpreted and Dictated by Rene Ladd MD Transcribed by Samra Barron Authenticated and [facility]
[2025-03-20 14:05] LABS: Blood Urea Nitrogen 20 mg/dl (7-17); Creatinine,Serum 0.90 mg/dl (0.52-1.04); Estimated Glomerular Filt Rate 65 ml/min (>60); GFR (African American) 79 ML/MIN (>60)
[2025-03-20] MEDS: 0.9 % SODIUM CHLORIDE 50 ML VIAL IV (14:29)
[2025-03-20] MEDS: IOPAMIDOL-370 (76%);100ML BOTTLE 85 ML IV (14:30)
[2025-03-20] MEDS: SODIUM CHLORIDE 0.9% 10ML SYR (RAD ONLY) 10 ML IV (14:30)
== END 2025-03-20 23:59 | disposition home or self-care (01) ==
LOC: RAD 13:24
PROVIDERS: PCP Family Medicine; Visit Provider Family Medicine
DX: R06.00 Dyspnea, unspecified (principal); Z86.711 Personal history of pulmonary embolism; Z99.81 Dependence on supplemental oxygen
CPT/HCPCS: 36415; 71275; 82565; 84520; Q9967